=== PATIENT | female | born 1960 | race Caucasian/White ===

== ENCOUNTER 2021-05-08 15:11 | Emergency (ER) | payer MEDICARE, SELFPAY ==
[2021-05-08 15:17] VITALS: BP 110/70; PULSE 91; RESP 16; TEMP 36.8; O2SAT 95; BMI 35.4
--- NOTE | 2021-05-08 15:44 | CTR_ITS ---
PROCEDURE INFORMATION: Exam: CT Head Without Contrast Exam date and time: 05/08/2021 3:44 PM Age: 60 years old Clinical indication: Injury or trauma; Blunt trauma (contusions or hematomas); Consciousness not specified; Patient HX: ETOH involved fall TECHNIQUE: Imaging protocol: Computed tomography of the head without contrast. Radiation optimization: All CT scans at this facility use at least one of these dose optimization techniques: automated exposure control; mA and/or kV adjustment per patient size (includes targeted exams where dose is matched to clinical indication); or iterative reconstruction. COMPARISON: No relevant prior studies available. RADIATION DOSE METRICS: Total DLP (mGy-cm): 722.68 FINDINGS: Brain: Mild white matter chronic microvascular changes are noted. No hemorrhage or evidence of acute infarction is seen. Cerebral ventricles: No ventriculomegaly. Paranasal sinuses: Visualized sinuses are unremarkable. No fluid levels. Mastoid air cells: Visualized mastoid air cells are well aerated. Bones/joints: Unremarkable. No acute fracture. Soft tissues: Unremarkable. CT/CT head wo con* [id number] IMPRESSION: No acute intracranial abnormality. Radiation Dose CTDIVOL = (mGy): DLP = 722.68 (mGy-cm)
--- NOTE | 2021-05-08 15:44 | ECG_ITS ---
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 Measurements Intervals [place] Rate: 74 P: 63 ME: 154 QRS: 64 QRSD: 107 T: 65 QT: 390 QTc: 433 Interpretive Statements SINUS RHYTHM INCOMPLETE RIGHT BUNDLE BRANCH BLOCK [90+ ms QRS DURATION, TERMINAL R IN V1/V2, 40+ ms S IN I/aVL/V4/V5/V6] No previous ECG available for comparison Electronically Signed On 05-08-2021 21:54:28 [employer] by Zaire Malcolm M.D. [id number]
--- NOTE | 2021-05-08 16:15 | CTR_ITS ---
PROCEDURE INFORMATION: Exam: CT Lumbar Spine Without Contrast Exam date and time: 05/08/2021 4:15 PM Age: 60 years old Clinical indication: Injury or trauma; Blunt trauma (contusions or hematomas); Patient HX: ETOH involved fall; Additional info: Back pain TECHNIQUE: Imaging protocol: Computed tomography images of the lumbar spine without contrast. Sagittal, oblique axial, and coronal reformatted images were created and reviewed. Radiation optimization: All CT scans at this facility use at least one of these dose optimization techniques: automated exposure control; mA and/or kV adjustment per patient size (includes targeted exams where dose is matched to clinical indication); or iterative reconstruction. COMPARISON: No relevant prior studies available. RADIATION DOSE METRICS: Total DLP (mGy-cm): 1993.61 FINDINGS: Vertebrae: Vertebral body height is maintained. No subluxation. Normal bone mineralization. No acute fracture. Discs/Spinal canal/Neural foramina: Moderate loss of disc space height at T12-L1 and L5-S1. Calcification of the disc at L5-S1 and vacuum phenomenon at T12-L1 and L4-L5. Small broadbased posterior disc bulges at T12-L1 through L5-S1. Small marginal osteophytes at T12-L1 and L5-S1. Mild bilateral facet hypertrophy at L5-S1. Mild spinal canal stenosis at T12-L1 through L4-L5. Multilevel foraminal stenosis of varying severity in the visualized spine. Epidural space: No evidence for an epidural hematoma. Vasculature: Mild atherosclerotic changes in the visualized arteries. No evidence for aortic aneurysm. Soft tissues: No paravertebral soft tissue abnormality. Partially visualized low-density foci in the visualized left adrenal gland suggesting adrenal adenomas, the largest measures 1.1 x 1.7 cm (series 3, image 1). No radiopaque foreign body. CT/CT lumbar spine wo con* [id number] IMPRESSION: 1. No acute fracture of the lumbar spine. 2. Multilevel degenerative changes of varying severity in the visualized spine. 3. Mild spinal canal stenosis at T12-L1 through L4-L5. Multilevel foraminal stenosis of varying severity in the visualized spine. 4. Incidental/nonacute findings are listed in the report. COMMENTS: Consistent with the [employer]'s Incidental Findings Committee white paper (J Am Yon Radiol 2017): For any incidental adrenal lesion greater than 1 cm but less than 4 cm classified in this report as benign, likely benign, or containing fat (including classification as an adenoma or myelolipoma), no follow-up imaging is recommended per consensus recommendations based on imaging criteria. Further lab evaluation could be pursued if warranted based on clinical findings. Radiation Dose CTDIVOL = (mGy): DLP = 1994.61 (mGy-cm)
[2021-05-08 16:19] LABS: Basophils % 0.3 %; Eosinophils # 0.2 10^3/uL (0.0-0.8); Eosinophils % 1.4 %; Hematocrit 40.2 % (37.0-47.0); Hemoglobin 13.9 g/dL (11.5-15.3); Lymphocytes # 2.6 10^3/uL (0.8-4.8); Lymphocytes % 19.4 %; Mean Corpuscular HGB Conc 34.6 g/dL (30.0-36.0); Mean Corpuscular Hemoglobin 34.4 pg (28.0-34.0); Mean Corpuscular Volume 99.5 fl (81-99); Mean Platelet Volume 10.6 fL (7.4-10.4); Monocytes # 0.4 10^3/uL (0.2-0.9); Monocytes % 2.9 %; Neutrophils # 10.11 10^3/uL (1.8-7.7); Neutrophils % 75.7 %; Nucleated Red Blood Cells % 0 %; Platelet Count 239 10^3/cmm (130-400); Red Blood Count 4.04 10^6/uL (4.1-5.3); Red Cell Distribution Width 13.1 % (12.1-15.1); White Blood Count 13.4 10^3/uL (4.0-10.0)
--- NOTE | 2021-05-08 16:26 | W.ED.GENADLT ---
HPI - General Adult General: Chief complaint: Alcohol Stated complaint: ETOH INTOX Time Seen by Provider: 05/08/21 15:21 History of Present Illness: HPI narrative: Patient is a 60-year-old female with a history of alcohol dependence, recurrent falls who presents the emergency room for concerns of nausea vomiting, diarrhea lightheadedness and fall x1 day. Patient tells me that yesterday she went to a community center for dinner. While eating food, patient says that she felt like there were hives in my chest . Patient also reports chest pain followed by nausea vomiting. Patient says that she felt very lightheaded and had watery diarrhea 3 times. Patient says that she eventually passed out and was found on the ground. Patient complains of posterior headache and back pain after the fall. Patient this morning, patient says that she has had multiple drinks already. Denies any active chest pain or shortness of breath, reports decreased p.o., nausea and persistent diarrhea throughout the night. Patient denies any fever/chills, melena/hematochezia, complaints, or new vaginal discharge. Onset:1 day ago Duration:1 day Location:home Severity:moderate Review of Systems Narrative: Constitutional: No fever, no chills. HEENT: No vision changes CV: +chest pain x 1 episode yesterday, no palpitations PULM: no cough, +dyspnea x 1 episode yesterday GI: No abdominal pain, +N/+V/+D. : No dysuria MSKEL: No muscle pain SKIN: No new rashes, no lesions. NEURO: No headache, no focal weakness. HEME: No visible bruises PSYCH: Normal mood Physical Exam Narrative: EXAM NARRATIVE: Head: Atraumatic Eyes: PERRL, conjunctiva without injection ENT: Mucous membrane moist NECK: Supple, ROM intact LUNGS: LCTAB, no crackles/rhonchi CV: RRR ABDOMEN: Soft, no focal TTP. NO guarding rebound, guarding, rigidity. No CVA tenderness to percussion. Neg Martinez/Neg McBurney's point tenderness, no suprabupic tenderness to palpation. EXTREMITY: Normal ROM SKIN: No rash or erythema NEURO: Awake and alert, no focal motor deficits PSYCH: Normal mood and affect Course Vital Signs: Vital signs: Vital Signs Temperature 98.2 F 05/08/21 15:17 Pulse Rate 91 05/08/21 15:17 Respiratory Rate 16 05/08/21 15:17 Blood Pressure 110/70 05/08/21 15:17 Pulse Oximetry 95 05/08/21 15:17 MDM - General Adult MDM Narrative: Medical decision making narrative: 60-year-old female with history of alcohol dependence presents emergency room with nausea/vomiting, diarrhea, lightheadedness after eating [employer] food yesterday night. On exam, patient is hemodynamically stable, patient has no focal findings on exam. CBCV showed a white count of 13.4. Rest of vitals within normal limit. Creatinine within normal limit. Patient received 2 L of fluid GI cocktail with symptomatic improvement. Work-up today includes CT brain/CT lumbar spine for fall are negative for any acute fractures or brain bleed. Patient tolerated p.o. in the emergency room without any difficulty. At present time, I do not suspect that there is any acute emergent pathologies given his nausea and vomiting. K of 3.4, patient received 40meQ of potassium chloride tablet. Considered appendicitis however unlikely at this time given lack of signs and sx's to suggest appendicitis as etiology. Pt counseled that appendicitis may later develop and given appendicitis precautions and instructed to return if any development of RLQ tenderness, worsening or continued abdominal pain, or any fevers, chills, nausea, vomiting, or any other concerning signs or symptoms. Rx maalox and pepcid PRN dyspepsia and zofran PRN nausea/vomiting Disposition: Discharge. Patient counseled regarding diagnostic impression, treatment plan. Patient given ED strict return precautions to return for continuation, worsening, or development of new symptoms. Instructed to f/u w/ PCP regarding symptoms today. Patient verbalized understanding. Lab Data: Labs: Lab Results 05/08/21 05/08/21 05/08/21 16:13 16:13 16:13 WBC 13.4 10^3/uL H 10 ^3/uL (4.0-10.0) RBC 4.04 10^6/uL L 10 ^6/uL (4.1-5.3) Hgb 13.9 g/dL g/dL (11.5-15.3) Hct 40.2 % % (37.0-47.0) MCV 99.5 fl H fl (81-99) MCH 34.4 pg H pg (28.0-34.0) MCHC 34.6 g/dL g/dL (30.0-36.0) RDW 13.1 % % (12.1-15.1) Plt Count 239 10^3/cmm 10^3 /cmm (130-400) MPV 10.6 fL H fL (7.4-10.4) Neut % (Auto) 75.7 % % Lymph % (Auto) 19.4 % % [place] % (Auto) 2.9 % % Eos % (Auto) 1.4 % % Baso % (Auto) 0.3 % % Neut # (Auto) 10.11 10^3/uL H 1 0^3/uL (1.8-7.7) Lymph # (Auto) 2.6 10^3/uL 10^3/ uL (0.8-4.8) [place] # (Auto) 0.4 10^3/uL 10^3/ uL (0.2-0.9) Eos # (Auto) 0.2 10^3/uL 10^3/ uL (0.0-0.8) Baso # (Auto) 0.0 10^3/uL 10^3/ uL (0.0-0.1) Nucleated RBC % (a uto) 0 % % Nucleated RBCs # 0.0 /100WBC /100W BC Sodium 138 mmol/L mmol/L (136-145) Potassium 3.4 mmol/L L mmol /L (3.5-5.1) Chloride 99 mmol/L mmol/L (98-107) Carbon Dioxide 21 mmol/L L mmol/ L (22-29) Anion Gap 21.4 H (5-19) BUN 8 mg/dL mg/dL (8-23) Creatinine 0.6 mg/dL mg/dL (0.5-0.9) GFR Calculation 101.6 mL/min mL/m in (90-130) Glucose 86 mg/dL mg/dL (65-115) Calculated Osmolal ity 284 mOsm/kg L mOs m/kg (285-295) Calcium 8.9 mg/dL mg/dL (8.5-10.5) Magnesium 1.9 mg/dL mg/dL (1.7-2.3) Total Bilirubin 0.4 mg/dL mg/dL (0.15-1.2) AST 12 U/L U/L (0-32) ALT 6 U/L U/L (0-33) Alkaline Phosphata se 76 IU/L IU/L (35-105) Troponin T Baselin e 8 ng/L ng/L (0-10) Total Protein 5.7 g/dL L g/dL (6.6-8.7) Albumin 3.6 g/dL g/dL (3.5-5.2) Globulin 2.1 g/dL g/dL (1.3-4.6) Lipase 11 U/L L U/L (13-60) Imaging Data^: Other Imaging: Radiologist's impression: [employer] [place] [id number] Scan ReportSigned Patient: Rosangela Meyer #: [id number]: 1960Acct#:[id number]/Sex: 60 / FADM Date: 05/08/21Loc: ERRoom/Bed:Attending Dr: Ordering Provider/Ordering MD: Radha Marino MD Date of Service: 05/08/21 Procedure(s): CT lumbar spine wo con* [id number] Accession Number(s): [id number] Report Number: [id number] PROCEDURE INFORMATION: Exam: CT Lumbar Spine Without Contrast Exam date and time: 05/08/2021 4:15 PM Age: 60 years old Clinical indication: Injury or trauma; Blunt trauma (contusions or hematomas); Patient HX: ETOH involved fall; Additional info: Back pain TECHNIQUE: Imaging protocol: Computed tomography images of the lumbar spine without contrast. Sagittal, oblique axial, and coronal reformatted images were created and reviewed. Radiation optimization: All CT scans at this facility use at least one of these dose optimization techniques: automated exposure control; mA and/or kV adjustment per patient size (includes targeted exams where dose is matched to clinical indication); or iterative reconstruction. COMPARISON: No relevant prior studies available. RADIATION DOSE METRICS: Total DLP (mGy-cm): 1993.61 FINDINGS: Vertebrae: Vertebral body height is maintained. No subluxation. Normal bone mineralization. No acute fracture. Discs/Spinal canal/Neural foramina: Moderate loss of disc space height at T12-L1 and L5-S1. Calcification of the disc at L5-S1 and vacuum phenomenon at T12-L1 and L4-L5. Small broadbased posterior disc bulges at T12-L1 through L5-S1. Small marginal osteophytes at T12-L1 and L5-S1. Mild bilateral facet hypertrophy at L5-S1. Mild spinal canal stenosis at T12-L1 through L4-L5. Multilevel foraminal stenosis of varying severity in the visualized spine. Epidural space: No evidence for an epidural hematoma. Vasculature: Mild atherosclerotic changes in the visualized arteries. No evidence for aortic aneurysm. Soft tissues: No paravertebral soft tissue abnormality. Partially visualized low-density foci in the visualized left adrenal gland suggesting adrenal adenomas, the largest measures 1.1 x 1.7 cm (series 3, image 1). No radiopaque foreign body. CT/CT lumbar spine wo con* [id number] IMPRESSION: 1. No acute fracture of the lumbar spine. 2. Multilevel degenerative changes of varying severity in the visualized spine. 3. Mild spinal canal stenosis at T12-L1 through L4-L5. Multilevel foraminal stenosis of varying severity in the visualized spine. 4. Incidental/nonacute findings are listed in the report. COMMENTS: Consistent with the [employer]'s Incidental Findings Committee white paper (J Am Yon Radiol 2017): For any incidental adrenal lesion greater than 1 cm but less than 4 cm classified in this report as benign, likely benign, or containing fat (including classification as an adenoma or myelolipoma), no follow-up imaging is recommended per consensus recommendations based on imaging criteria. Further lab evaluation could be pursued if warranted based on clinical findings. Radiation Dose CTDIVOL = (mGy): DLP = 1994.61 (mGy-cm) Dictated By:Madison Fuchs MDSigned By:Madison Fuchs MDSigned Date/Time:05/08/21 1722DD/ 1615 [facility] [place] [id number] Scan ReportSigned Patient: Rosangela Meyer #: [id number]: 1960Acct#:[id number]/Sex: 60 / FADM Date: 05/08/21Loc: ERRoom/Bed:Attending Dr: Ordering Provider/Ordering MD: Radha Marino MD Date of Service: 05/08/21 Procedure(s): CT head wo con* [id number] Accession Number(s): [id number] Report Number: [id number] PROCEDURE INFORMATION: Exam: CT Head Without Contrast Exam date and time: 05/08/2021 3:44 PM Age: 60 years old Clinical indication: Injury or trauma; Blunt trauma (contusions or hematomas); Consciousness not specified; Patient HX: ETOH involved fall TECHNIQUE: Imaging protocol: Computed tomography of the head without contrast. Radiation optimization: All CT scans at this facility use at least one of these dose optimization techniques: automated exposure control; mA and/or kV adjustment per patient size (includes targeted exams where dose is matched to clinical indication); or iterative reconstruction. COMPARISON: No relevant prior studies available. RADIATION DOSE METRICS: Total DLP (mGy-cm): 722.68 FINDINGS: Brain: Mild white matter chronic microvascular changes are noted. No hemorrhage or evidence of acute infarction is seen. Cerebral ventricles: No ventriculomegaly. Paranasal sinuses: Visualized sinuses are unremarkable. No fluid levels. Mastoid air cells: Visualized mastoid air cells are well aerated. Bones/joints: Unremarkable. No acute fracture. Soft tissues: Unremarkable. CT/CT head wo con* [id number] IMPRESSION: No acute intracranial abnormality. Radiation Dose CTDIVOL = (mGy): DLP = 722.68 (mGy-cm) Dictated By:Carlos Mcgowan MDSigned By:Carlos Mcgowan MDSigned Date/Time:05/08/21 1714DD/ 1544 Discharge Plan Discharge Patient Disposition: Home Clinical Impression: Nausea & vomiting, Diarrhea, Light headedness, Alcohol dependence Condition: Stable Prescriptions: New Zofran 4 mg tablet 4 mg PO DAILY PRN (Reason: nausea and vomiting) 4 Days RF: 0 Pepcid 20 mg tablet 20 mg PO BID PRN (Reason: abdominal pain) 10 Days Qty: 20 RF: 0 Maalox Advanced 1,000-60 mg tablet,chewable 1 tab PO TID PRN (Reason: abdominal pain) 7 Days Qty: 21 RF: 0 Discharge Orders: Discharge ED (Routine); Ordered 05/08/21 Ordered By: Radha Marino Discharge Diet: Advance as tolerated Discharge Activity: Resume usual activity Patient Instructions: Acute Nausea and Vomiting (ED) Activity Restrictions/Additional Instructions: Come back to the emergency room if your symptoms worsen, have any shortness of breath, fever/chills, dehydration, inability tolerate p.o., any difficulty breathing, or any new or concerning complaints. Coding Level of Care Code ED [facility]
[2021-05-08 16:47] LABS: Alanine Aminotransferase 6 U/L (0-33); Albumin Level 3.6 g/dL (3.5-5.2); Alkaline Phosphatase 76 IU/L (35-105); Anion Gap 21.4 (5-19); Aspartate Amino Transferase 12 U/L (0-32); Blood Urea Nitrogen 8 mg/dL (8-23); Calcium 8.9 mg/dL (8.5-10.5); Carbon Dioxide 21 mmol/L (22-29); Chloride 99 mmol/L (98-107); Globulin 2.1 g/dL (1.3-4.6); Glomerular Filtration Rate 101.6 mL/min (90-130); Glucose 86 mg/dL (65-115); Lipase 11 U/L (13-60); Magnesium 1.9 mg/dL (1.7-2.3); Osmolality Calculated 284 mOsm/kg (285-295); Potassium 3.4 mmol/L (3.5-5.1); Sodium 138 mmol/L (136-145); Total Bilirubin 0.4 mg/dL (0.15-1.2); Total Protein 5.7 g/dL (6.6-8.7)
[2021-05-08 16:48] LABS: Troponin(5th) Baseline 8 ng/L (0-10)
[2021-05-08] MEDS: sodium chloride 0.9% 1,000 ML 999 ML IV (17:17)
[2021-05-08] MEDS: lidocaine 2% viscous 15 ML, aluminum-mag hydrox-simethicon 30 ML, sucralfate oral liq 1 GM PO (17:18)
[2021-05-08] MEDS: potassium chloride ER 20 mEq Tablet 40 MEQ PO (18:00)
== END 2021-05-08 18:01 | disposition home or self-care (01) ==
PROVIDERS: Emergency Provider Emergency Medicine
DX: F10.20 Alcohol dependence, uncomplicated (principal); R11.2 Nausea with vomiting, unspecified; R19.7 Diarrhea, unspecified; R42 Dizziness and giddiness
CPT/HCPCS: 70450; 72131; 80053; 83690; 83735; 84484; 85025; 93005; 96360; 99283; J7030

== ENCOUNTER 2021-07-10 17:31 | Emergency (ER) | payer MEDICARE, SELFPAY ==
--- NOTE | 2021-07-10 17:42 | XRR_ITS ---
PROCEDURE INFORMATION: Exam: XR Right Knee Exam date and time: 07/10/2021 5:42 PM Age: 60 years old Clinical indication: Pain; Knee; Right; Additional info: Fall, pain TECHNIQUE: Imaging protocol: XR Right knee. Views: 3 views. COMPARISON: No relevant prior studies available. FINDINGS: Bones/joints: Normal. Soft tissues: Normal. No effusion XR/XR knee RT 3V* [id number] IMPRESSION: No significant findings
--- NOTE | 2021-07-10 17:42 | CTR_ITS ---
PROCEDURE INFORMATION: Exam: CT Cervical Spine Without Contrast Exam date and time: 07/10/2021 5:42 PM Age: 60 years old Clinical indication: Injury or trauma; Blunt trauma; Patient HX: Unwitnessed fall TECHNIQUE: Imaging protocol: Computed tomography images of the cervical spine without contrast. Radiation optimization: All CT scans at this facility use at least one of these dose optimization techniques: automated exposure control; mA and/or kV adjustment per patient size (includes targeted exams where dose is matched to clinical indication); or iterative reconstruction. COMPARISON: CT head wo con* [id number] 05/08/2021 4:27 PM RADIATION DOSE METRICS: Total DLP (mGy-cm): 624.21 FINDINGS: Bones/joints: No cervical fracture or subluxation. Discs/Spinal canal/Neural foramina: Chronic disc spur complex at C5-C6 producing mild central stenosis with minimum midline AP canal diameter of 9 mm. Both neural foramina are narrowed due to spurs. Prevertebral Space: No prevertebral swelling. Thyroid: 1.3 cm solid left thyroid nodule. Lungs: Paraseptal emphysema in the lung apices. Vasculature: Scattered calcified plaques in both carotid bifurcations. Soft tissues: Unremarkable. CT/CT cervical spin wo con* [id number] IMPRESSION: 1. No acute cervical spine findings. 2. 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 3. Small solid left thyroid nodule. COMMENTS: Consistent with the [employer]'s Incidental Findings Committee white paper (J Am Yon Radiol 2015): In patients aged 35 years and older with an incidental thyroid nodule equal to or greater than 1.[address], MRI or extrathyroidal US, further evaluation with dedicated thyroid US is recommended for patients with normal life expectancy and without comorbidities. For smaller nodules without suspicious features, no further evaluation or follow up is recommended.
--- NOTE | 2021-07-10 17:42 | CTR_ITS ---
PROCEDURE INFORMATION: Exam: CT Head Without Contrast Exam date and time: 07/10/2021 5:42 PM Age: 60 years old Clinical indication: Injury or trauma; Fall; Blunt trauma (contusions or hematomas); Additional info: Fall, MEJÍA; ETOH TECHNIQUE: Imaging protocol: Computed tomography of the head without contrast. Radiation optimization: All CT scans at this facility use at least one of these dose optimization techniques: automated exposure control; mA and/or kV adjustment per patient size (includes targeted exams where dose is matched to clinical indication); or iterative reconstruction. COMPARISON: CT head wo con* [id number] 05/08/2021 4:27 PM RADIATION DOSE METRICS: Total DLP (mGy-cm): 785.71 FINDINGS: Brain: No CT evidence for acute ischemia, mass or hemorrhage. No extra-axial fluid collection, midline shift or hydrocephalus. Mild sulcal widening is a chronic age related change. Cerebral ventricles: Mild age related enlargement. Paranasal sinuses: Visualized sinuses are unremarkable. No fluid levels. Mastoid air cells: Visualized mastoid air cells are well aerated. Bones/joints: Unremarkable. No acute fracture. Soft tissues: Unremarkable. CT/CT head wo con* [id number] IMPRESSION: No acute findings.
--- NOTE | 2021-07-10 17:44 | W.ED.FALL ---
HPI - Fall General: Chief Complaint: Alcohol Stated Complaint: HEAD PAIN S/P FALL; ETOH Time Seen by Provider: 07/10/21 17:33 Source: patient and EMS Mode of arrival: EMS Limitations: no limitations History of Present Illness: HPI Narrative: Patient is a 60-year-old female presents to ED today via EMS for evaluation following a fall 2 days ago. Patient tells me she was carrying wood down to her house when she accidentally slipped and fell secondary to ice. She states she struck the back of her head and landed on her right knee. Patient arrives acutely intoxicated. She does have a longstanding history of chronic alcohol use. Patient states she knows her right knee is broke (as she moves it all around on the table). Denies LOC during the fall. She does not complain of neck or back pain. States she struck her face but is not having pain here. Patient states two male individuals cut wood for her and apparently today came and checked on her and found her acutely intoxicated so they called an ambulance. Patient upon arrival clearly has been drinking. She is cooperative at times. Other times she is cantankerous and slightly belligerent. complaint: fall Onset (ago): day(s) Fall from: standing Fall witnessed: no Place fall occurred: home Loss of consciousness: None Prolonged down time: no Symptoms prior to fall: none Context: tripped/slipped (ice) Associated symptoms-after fall: Reports headache(s); Denies abdominal pain, chest pain, hematuria, lightheadedness or neck pain Review of Systems Const: Denies: fever(s), chills, body aches, fatigue or malaise Eyes: Denies: change in vision or blurry vision ENMT: Denies: throat pain, odynophagia, nasal discharge or nasal congestion Card: Denies: chest pain, palpitations, irregular heart rhythm, edema, lightheadedness, syncope, pre-syncope or dyspnea on exertion Resp: Denies: dyspnea, productive cough, non-productive cough, wheezing, hemoptysis or chest congestion GI: Denies: abdominal pain, nausea, vomiting or diarrhea : Denies: flank pain, dysuria or hematuria Musc: Reports: joint pain (R knee); Denies: neck pain, back pain, extremity pain, extremity swelling, joint swelling, joint redness or joint warmth Neuro: Reports: headache(s); Denies: numbness in extremities, weakness in extremities, sensory changes or dizziness Physical Exam Const: COMMON NORMALS: patient oriented x3, no limitations and alert GENERAL APPEARANCE: disheveled and odor of alcohol detected ORIENTATION/CONSCIOUSNESS: Yes awake, Yes oriented to person, Yes oriented to place and Yes oriented to time HENMT: COMMON NORMALS: normocephalic, atraumatic and Normal external nose present HEAD & SCALP: normal to inspection, normocephalic and atraumatic FACE & SINUS: normal facial exam NOSE: Normal external nose present TEETH & GINGIVA: Yes other (extremely poor dentition) Neck/C-Spine: COMMON NORMALS: full ROM GENERAL: Yes normal visual inspection CERVICAL SPINE: No pain with cervical ROM and No Cervical spine tenderness Resp: COMMON NORMALS: normal respiratory effort and clear to auscultation bilaterally AUSCULTATION: clear to auscultation bilaterally Cardio: COMMON NORMALS: regular rate and regular rhythm RATE: regular rate RHYTHM: regular rhythm GI: COMMON NORMALS: Normal to inspection, nondistended, normoactive bowel sounds present, Soft to palpation, non-tender, No hepatosplenomegaly present and no masses PALPATION: Yes Soft to palpation and Yes No hepatosplenomegaly present Back/Pelvis: COMMON NORMALS: thoracic and lumbar spine normal to inspection, no thoracic nor lumbar tenderness and thoraco-lumbar ROM normal Extremity: COMMON NORMALS: full ROM GENERAL: Yes normal exam except as noted RIGHT LOWER EXTREMITY: Yes knee joint (ecchymosis w/o swelling R anterior knee; full ROM) Right knee: Yes palpation (TTP anterior knee), Yes ROM (normal) and Yes neurovascular exam (normal) Neuro: TONY COMA SCALE: document GCS findings Mccune coma scale eye opening: Spontaneous Tony coma scale verbal response: Orientated Tony coma scale motor response: Obey commands Tony coma scale total score: 15 COMMON NORMALS: patient oriented x3, CN's II-XII intact bilaterally, moves all extremities, no focal motor deficits and no sensory deficits noted SENSORIUM/ORIENTATION: Yes alert, Yes oriented to person, Yes oriented to place and Yes oriented to time Skin: TRAUMA: no lacerations OTHER: mild abrasions to R hand, R anterior knee Course Vital Signs: Vital signs: Vital Signs Temperature 97.8 F 07/10/21 18:30 Pulse Rate 71 07/10/21 18:30 Respiratory Rate 14 07/10/21 18:30 Blood Pressure 146/93 07/10/21 18:30 Pulse Oximetry 97 07/10/21 18:30 MDM - Fall MDM Narrative: Medical decision making narrative: Patient CT head/cervical spine negative. XR right knee negative. Lab work ordered however patient is refusing this. Upon re-examination patient is cooperative. She is alert and oriented and answering all questions appropriately. Vital signs are stable. Patient states she wants to go home. Patient will be discharged when she finds a safe ride home. Imaging Data^: XR R knee: Radiologist's impression: [employer] [facility].[place], [place] [address]ZUuy ReportSigned Patient: Efrain Meyert #: [id number]: [id number]#:[id number]/Sex: 60 / FADM Date: 07/10/21Loc: ERRoom/Bed:Attending Dr: Ordering Provider/Ordering MD: Raysa Mtz Date of Service: 07/10/21 Procedure(s): XR knee RT 3V* [id number] Accession Number(s): [id number] Report Number: [id number] PROCEDURE INFORMATION: Exam: XR Right Knee Exam date and time: 07/10/2021 5:42 PM Age: 60 years old Clinical indication: Pain; Knee; Right; Additional info: Fall, pain TECHNIQUE: Imaging protocol: XR Right knee. Views: 3 views. COMPARISON: No relevant prior studies available. FINDINGS: Bones/joints: Normal. Soft tissues: Normal. No effusion XR/XR knee RT 3V* [id number] IMPRESSION: No significant findings Dictated By:Otto Ovalleigned By:Otto Ovalleigned Date/Time:07/10/21 1822DD/ 1742 CT cervical: Radiologist's impression: [employer] [address] [facility] [place] [address] CT Scan Report Signed Patient: Vero Meyer Unit #: [id number] : 1960 Age/Sex: 60 / F ADM Date: 07/10/21 Loc: ER Room/Bed: Attending Dr: Ordering Provider/Ordering MD: Raysa Mtz Date of Service: 07/10/21 Procedure(s): CT cervical spin wo con* [id number] Accession Number(s): [id number] Report Number: [id number] PROCEDURE INFORMATION: Exam: CT Cervical Spine Without Contrast Exam date and time: 07/10/2021 5:42 PM Age: 60 years old Clinical indication: Injury or trauma; Blunt trauma; Patient HX: Unwitnessed fall TECHNIQUE: Imaging protocol: Computed tomography images of the cervical spine without contrast. Radiation optimization: All CT scans at this facility use at least one of these dose optimization techniques: automated exposure control; mA and/or kV adjustment per patient size (includes targeted exams where dose is matched to clinical indication); or iterative reconstruction. COMPARISON: CT head wo con* [id number] 05/08/2021 4:27 PM RADIATION DOSE METRICS: Total DLP (mGy-cm): 624.21 FINDINGS: Bones/joints: No cervical fracture or subluxation. Discs/Spinal canal/Neural foramina: Chronic disc spur complex at C5-C6 producing mild central stenosis with minimum midline AP canal diameter of 9 mm. Both neural foramina are narrowed due to spurs. Prevertebral Space: No prevertebral swelling. Thyroid: 1.3 cm solid left thyroid nodule. Lungs: Paraseptal emphysema in the lung apices. Vasculature: Scattered calcified plaques in both carotid bifurcations. Soft tissues: Unremarkable. CT/CT cervical spin wo con* [id number] IMPRESSION: 1. No acute cervical spine findings. 2. 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 3. Small solid left thyroid nodule. COMMENTS: Consistent with the [employer]'s Incidental Findings Committee white paper (J Am Yon Radiol 2015): In patients aged 35 years and older with an incidental thyroid nodule equal to or greater than 1.[address], MRI or extrathyroidal US, further evaluation with dedicated thyroid US is recommended for patients with normal life expectancy and without comorbidities. For smaller nodules without suspicious features, no further evaluation or follow up is recommended. Dictated By: Otto Ovalle MD Signed By: Otto Ovalle MD Signed Date/Time: 07/10/211824 DD/ 41 CT Head: Radiologist's impression: [facility].[place], [place] [address]BX Scan ReportSigned Patient: Rosangela Meyer #: [id number]: 1960Acct#:[id number]/Sex: 60 / FADM Date: 07/10/21Loc: ERRoom/Bed:Attending Dr: Ordering Provider/Ordering MD: Raysa Mtz Date of Service: 07/10/21 Procedure(s): CT head wo con* [id number] Accession Number(s): [id number] Report Number: [id number] PROCEDURE INFORMATION: Exam: CT Head Without Contrast Exam date and time: 07/10/2021 5:42 PM Age: 60 years old Clinical indication: Injury or trauma; Fall; Blunt trauma (contusions or hematomas); Additional info: Fall, MEJÍA; ETOH TECHNIQUE: Imaging protocol: Computed tomography of the head without contrast. Radiation optimization: All CT scans at this facility use at least one of these dose optimization techniques: automated exposure control; mA and/or kV adjustment per patient size (includes targeted exams where dose is matched to clinical indication); or iterative reconstruction. COMPARISON: CT head wo con* [id number] 05/08/2021 4:27 PM RADIATION DOSE METRICS: Total DLP (mGy-cm): 785.71 FINDINGS: Brain: No CT evidence for acute ischemia, mass or hemorrhage. No extra-axial fluid collection, midline shift or hydrocephalus. Mild sulcal widening is a chronic age related change. Cerebral ventricles: Mild age related enlargement. Paranasal sinuses: Visualized sinuses are unremarkable. No fluid levels. Mastoid air cells: Visualized mastoid air cells are well aerated. Bones/joints: Unremarkable. No acute fracture. Soft tissues: Unremarkable. CT/CT head wo con* [id number] IMPRESSION: No acute findings. Dictated By:Otto Ovalleigned By:Otto Ovalle Date/Time:07/10/211836DD/ 41 Discharge Plan Discharge Patient Disposition: Home Clinical Impression: Alcoholic intoxication Qualifiers: Complication of substance-induced condition: uncomplicated Qualified Code(s): F10.920 - Alcohol use, unspecified with intoxication, uncomplicated Fall from slipping Qualifiers: Encounter type: initial encounter Qualified Code(s): W01.0XXA - Fall on same level from slipping, tripping and stumbling without subsequent striking against object, initial encounter Contusion of knee, right Qualifiers: Encounter type: initial encounter Qualified Code(s): S80.01XA - Contusion of right knee, initial encounter Condition: Stable Discharge Orders: Discharge ED (Routine); Ordered 07/10/21 Ordered By: Raysa Mtz Activity Restrictions/Additional Instructions: Your CT scan found an incidental finding of a small solid left thyroid nodule. Please follow-up with your primary care provider in the next few weeks for further evaluation of this. Coding Level of Care Code ED [facility] for Maged Gallegos Exam Comprehensive
[2021-07-10 18:30] VITALS: BP 146/93; PULSE 71; RESP 14; TEMP 36.6; O2SAT 97; BMI 30.9
== END 2021-07-10 19:53 | disposition home or self-care (01) ==
PROVIDERS: Emergency Provider Physician Assistant
DX: F10.920 Alcohol use, unspecified with intoxication, uncomplicated (principal); S80.01XA Contusion of right knee, initial encounter; W01.0XXA Fall on same level from slipping, tripping and stumbling without subsequent striking against object, initial encounter; E04.1 Nontoxic single thyroid nodule
CPT/HCPCS: 70450; 72125; 73562; 99282

== ENCOUNTER 2021-08-23 16:32 | Inpatient (IN) | payer MEDICARE, SELFPAY ==
--- NOTE | 2021-08-23 16:35 | CTR_ITS ---
PROCEDURE INFORMATION: Exam: CT Abdomen And Pelvis With Contrast Exam date and time: 08/23/2021 4:35 PM Age: 61 years old Clinical indication: Patient HX: Abdominal pain with mass; Additional info: Abd pain TECHNIQUE: Imaging protocol: Computed tomography of the abdomen and pelvis with contrast. Radiation optimization: All CT scans at this facility use at least one of these dose optimization techniques: automated exposure control; mA and/or kV adjustment per patient size (includes targeted exams where dose is matched to clinical indication); or iterative reconstruction. Contrast material: OMNI 300; Contrast volume: 95 ml; Contrast route: INTRAVENOUS (IV); COMPARISON: CT lumbar spine wo con* [id number] 05/08/2021 4:30 PM RADIATION DOSE METRICS: Total DLP (mGy-cm): 1360.13 FINDINGS: Liver: Normal. No mass. Gallbladder and bile ducts: Normal. No calcified stones. No ductal dilation. Pancreas: Normal. No ductal dilation. Spleen: Normal. No splenomegaly. Adrenal glands: Bilateral adrenal hypertrophy suspected. Kidneys and ureters: Normal. No hydronephrosis. Stomach and bowel: Diverticulosis with some mid sigmoid colon wall thickening in the area of several diverticuli perhaps reflecting associated diverticulitis or short segment colitis in the appropriate clinical setting. Appendix: No evidence of appendicitis. Intraperitoneal space: Unremarkable. No free air. No significant fluid collection. Vasculature: Unremarkable. No abdominal aortic aneurysm. Lymph nodes: Unremarkable. No enlarged lymph nodes. Urinary bladder: Unremarkable as visualized. Reproductive: Unremarkable as visualized. Bones/joints: Unremarkable. No acute fracture. Soft tissues: Lower abdominal wall somewhat multiloculated cystic mass measuring 15 cm craniocaudal by 11 cm AP by 16 cm transverse confined to the subcutaneous fat without intra-abdominal extension along with a small amount of internal air, concerning for an infectious process. CT/CT abdomen pelvis w con* [id number] IMPRESSION: 1. Lower abdominal wall somewhat multiloculated cystic mass measuring 15 cm craniocaudal by 11 cm AP by 16 cm transverse confined to the subcutaneous fat without intra-abdominal extension along with a small amount of internal air, concerning for an infectious process. 2. Bilateral adrenal hypertrophy suspected. 3. Diverticulosis with some mid sigmoid colon wall thickening in the area of several diverticuli perhaps reflecting associated diverticulitis or short segment colitis in the appropriate clinical setting.
--- NOTE | 2021-08-23 16:35 | W.ED.ABDPA2 ---
Documented by User: Ari Gonzalez DO 08/24/21 05:06 HPI - Abdominal Pain General: Chief Complaint: Abdominal Pain Stated Complaint: ABD PAIN X 1 MONTH Time Seen by Provider: 08/23/21 16:35 Source: patient Mode of arrival: ambulatory History of Present Illness: 61-year-old female presents emergency room with complaints of abdominal pain and swelling. Show a large soft tissue swelling area in the left lower quadrant. Patient relates that she thinks she has episode of diverticulitis she has had in the past. She denies any fever sweats chills denies any diarrhea. She is not had any nausea or vomiting. No dysuria urgency or frequency. She has some mild redness of the skin overlying the area has not had any active drainage from the skin. MD elicited complaint: abdominal pain Pertinent past history: diverticulitis Onset (ago): week(s) Pain Consistency: constant Location: LLQ Severity: moderate Quality: aching Radiation: none Migration to: no migration Exacerbating factors: movement Relieving factors: rest Associated Symptoms: Reports bloating; Denies anorexia, belching, change in bowel habits, change in stool character, chills, coffee ground emesis, constipation, GI cramping, diarrhea, dyspepsia, dysuria, excessive flatus, fever(s), heartburn, hematochezia, hematuria, hematemesis, fecal incontinence, loose stools, melena, nausea, poor appetite, syncope and vomiting Review of Systems Const: Denies: fever(s) or chills ENMT: Denies: throat pain, ear or mastoid pain, nasal discharge or nasal congestion Card: Denies: syncope Resp: Denies: dyspnea, productive cough or non-productive cough GI: Reports: bloating; Denies: nausea, vomiting, hematemesis, coffee ground emesis, heartburn, diarrhea, constipation, GI cramping, belching, excessive flatus, fecal incontinence, change in bowel habits, change in stool character, hematochezia or melena : Denies: dysuria or hematuria Skin/Breast: Denies: rash or pruritus PFS ED PFSH: Medical History Alcohol dependence Colitis Diverticular disease of intestine with perforation and abscess Recurrent falls Physical Exam Const: COMMON NORMALS: no acute distress GENERAL APPEARANCE: cooperative and comfortable ORIENTATION/CONSCIOUSNESS: Yes awake, Yes oriented to person, Yes oriented to place and Yes oriented to time HENMT: COMMON NORMALS: normocephalic, atraumatic and hearing grossly normal bilaterally HEAD & SCALP: normocephalic and atraumatic Neck/C-Spine: COMMON NORMALS: no JVD Resp: COMMON NORMALS: normal respiratory effort, No retractions, No use of accessory muscles and clear to auscultation bilaterally AUSCULTATION: clear to auscultation bilaterally Cardio: COMMON NORMALS: no JVD, regular rate, regular rhythm and No murmurs present (Cardio) RATE: regular rate RHYTHM: regular rhythm GI: COMMON NORMALS: No hepatosplenomegaly present AUSCULTATION: Yes normoactive bowel sounds PALPATION: Yes Tenderness to palpation present (GI), No Guarding due to palpation present (GI) and Yes No hepatosplenomegaly present OTHER: Large tender soft tissue mass in the left lower quadrant is firm to palpation tender there is some mild erythema on the inferior aspect. There is no drainage no pointing. On palpation it feels like an abdominal wall defect with abdominal contents filling the defect. Extremity: COMMON NORMALS: normal to inspection, capillary refill normal, no clubbing, cyanosis or edema, no calf tenderness and no pedal edema Neuro: SENSORIUM/ORIENTATION: Yes oriented to person, Yes oriented to place and Yes oriented to time Skin: COMMON NORMALS: no rashes or lesions noted GENERAL SKIN EXAM: no rashes or lesions noted Course Vital Signs: Vital signs: Vital Signs Temperature 97.9 F 08/23/21 22:08 Pulse Rate 82 08/23/21 23:30 Respiratory Rate 17 08/23/21 23:30 Blood Pressure 98/58 08/23/21 23:30 Pulse Oximetry 92 08/23/21 23:30 MDM - Abdominal Pain Medical Decision Making Care signed out to Dr. Corona at change of shift. See final notes for diagnosis and disposition. Patient presents here with pain in her left lower quadrant CT does show a abdominal wall mass in the subcu with some signs of infection along with erythema over the mass as well as cellulitis. I did spoke to surgery Dr. Prescott once patient admitted on IV antibiotics to speak to hospitalist who is admitting Dr. Quevedo is consulted. Lab Data : 08/23/21 16:48 08/23/21 16:48 Labs/Radiology: Radiology Impressions Abdomen/Pelvis CT 08/23/21 16:35 IMPRESSION: 1. Lower abdominal wall somewhat multiloculated cystic mass measuring 15 cm craniocaudal by 11 cm AP by 16 cm transverse confined to the subcutaneous fat without intra-abdominal extension along with a small amount of internal air, concerning for an infectious process. 2. Bilateral adrenal hypertrophy suspected. 3. Diverticulosis with some mid sigmoid colon wall thickening in the area of several diverticuli perhaps reflecting associated diverticulitis or short segment colitis in the appropriate clinical setting. Laboratory Results WBC 18.7 10^3/uL (4.0-10.0) H 08/23/21 16:48 RBC 3.53 10^6/uL (4.1-5.3) L 08/23/21 16:48 Hgb 11.7 g/dL (11.5-15.3) 08/23/21 16:48 Hct 33.4 % (37.0-47.0) L 08/23/21 16:48 MCV 94.6 fl (81-99) 08/23/21 16:48 MCH 33.1 pg (28.0-34.0) 08/23/21 16:48 MCHC 35.0 g/dL (30.0-36.0) 08/23/21 16:48 RDW 12.9 % (12.1-15.1) 08/23/21 16:48 Plt Count 443 10^3/cmm (130-400) H 08/23/21 16:48 MPV 9.2 fL (7.4-10.4) 08/23/21 16:48 Neut % (Auto) 85.0 % 08/23/21 16:48 Lymph % (Auto) 7.5 % 08/23/21 16:48 Lewis % (Auto) 6.3 % 08/23/21 16:48 Eos % (Auto) 0.1 % 08/23/21 16:48 Baso % (Auto) 0.4 % 08/23/21 16:48 Neut # (Auto) 15.91 10^3/uL (1.8-7.7) H 08/23/21 16:48 Lymph # (Auto) 1.4 10^3/uL (0.8-4.8) 08/23/21 16:48 [place] # (Auto) 1.2 10^3/uL (0.2-0.9) H 08/23/21 16:48 Eos # (Auto) 0.0 10^3/uL (0.0-0.8) 08/23/21 16:48 Baso # (Auto) 0.1 10^3/uL (0.0-0.1) 08/23/21 16:48 Nucleated RBC % (auto) 0 % 08/23/21 16:48 Nucleated RBCs # 0.0 /100WBC 08/23/21 16:48 Sodium 128 mmol/L (136-145) L 08/23/21 16:48 Potassium 4.3 mmol/L (3.5-5.1) 08/23/21 16:48 Chloride 92 mmol/L (98-107) L 08/23/21 16:48 Carbon Dioxide 25 mmol/L (22-29) 08/23/21 16:48 Anion Gap 15.3 (5-19) 08/23/21 16:48 BUN 12 mg/dL (8-23) 08/23/21 16:48 Creatinine 0.6 mg/dL (0.5-0.9) 08/23/21 16:48 GFR Calculation 101.3 mL/min (90-130) 08/23/21 16:48 Glucose 128 mg/dL (65-115) H 08/23/21 16:48 Calculated Osmolality 267 mOsm/kg (285-295) L 08/23/21 16:48 Lactic Acid 3.1 mmol/L (0.5-2.2) H 08/23/21 18:19 Calcium 9.7 mg/dL (8.5-10.5) 08/23/21 16:48 Total Bilirubin 0.5 mg/dL (0.15-1.2) 08/23/21 16:48 AST 17 U/L (0-32) 08/23/21 16:48 ALT 16 U/L (0-33) 08/23/21 16:48 Alkaline Phosphatase 130 IU/L (35-105) H 08/23/21 16:48 Total Protein 6.9 g/dL (6.6-8.7) 08/23/21 16:48 Albumin 3.1 g/dL (3.5-5.2) L 08/23/21 16:48 Globulin 3.8 g/dL (1.3-4.6) 08/23/21 16:48 Urine Color Yellow (Yellow) 08/23/21 17:27 Urine Appearance Clear (CLEAR) 08/23/21 17:27 Urine pH 7 (5-7) 08/23/21 17:27 Ur Specific [place] 1.005 (1.005-1.030) 08/23/21 17:27 Urine Protein Neg (Negative) 08/23/21 17:27 Urine Glucose (UA) Norm (Normal) 08/23/21 17:27 Urine Ketones Negative (Negative) 08/23/21 17: Urine Blood Neg (Negative) 08/23/21 17:27 Urine Nitrate Negative (Negative) 08/23/21 17:27 Urine Bilirubin Neg (Negative) 08/23/21 17:27 Urine Urobilinogen Norm mg/dL (Negative) 08/23/21 17:27 Ur Leukocyte Esterase Negative (Negative) 08/23/21 17:27 Urine Opiates Screen Negative ng/mL (Negative) 08/23/21 17:27 Ur Barbiturates Screen Negative ng/mL (Negative) 08/23/21 17:27 Ur Phencyclidine Scrn Negative ng/mL (Negative) 08/23/21 17:27 Ur Amphetamines Screen Negative ng/mL (Negative) 08/23/21 17:27 U Benzodiazepines Scrn Negative ng/mL (Negative) 08/23/21 17:27 Urine Cocaine Screen Negative ng/mL (Negative) 08/23/21 17:27 U Marijuana (THC) Screen Positive ng/mL (Negative) H 08/23/21 17:27 Discharge Plan Discharge Patient Disposition: Admitted As Inpatient Admit Provider: Miroslava Ridley Clinical Impression: Cellulitis, Abdominal wall mass Condition: Stable Coding Level of Care Code ED Head Sulfide Operator for Chg Fwd Documented by User: Apple Corona MD 08/23/21 19:21 HPI - Abdominal Pain General: Chief Complaint: Abdominal Pain Stated Complaint: ABD PAIN X 1 MONTH Time Seen by Provider: 08/23/21 16:35 History of Present Illness: . [facility] [place] ED PFSH: Medical History Alcohol dependence Colitis Diverticular disease of intestine with perforation and abscess Recurrent falls Course Vital Signs: Vital signs: Vital Signs Temperature 97.9 F 08/23/21 22:08 Pulse Rate 82 08/23/21 23:30 Respiratory Rate 17 08/23/21 23:30 Blood Pressure 98/58 08/23/21 23:30 Pulse Oximetry 92 08/23/21 23:30 MDM - Abdominal Pain Medical Decision Making Patient presents here with pain in her left lower quadrant CT does show a abdominal wall mass in the subcu with some signs of infection along with erythema over the mass as well as cellulitis. I did spoke to surgery Dr. Prescott once patient admitted on IV antibiotics to speak to hospitalist who is admitting Dr. Quevedo is consulted. Lab Data : 08/23/21 16:48 08/23/21 16:48 Labs/Radiology: Radiology Impressions Abdomen/Pelvis CT 08/23/21 16:35 IMPRESSION: 1. Lower abdominal wall somewhat multiloculated cystic mass measuring 15 cm craniocaudal by 11 cm AP by 16 cm transverse confined to the subcutaneous fat without intra-abdominal extension along with a small amount of internal air, concerning for an infectious process. 2. Bilateral adrenal hypertrophy suspected. 3. Diverticulosis with some mid sigmoid colon wall thickening in the area of several diverticuli perhaps reflecting associated diverticulitis or short segment colitis in the appropriate clinical setting. Laboratory Results WBC 18.7 10^3/uL (4.0-10.0) H 08/23/21 16:48 RBC 3.53 10^6/uL (4.1-5.3) L 08/23/21 16:48 Hgb 11.7 g/dL (11.5-15.3) 08/23/21 16:48 Hct 33.4 % (37.0-47.0) L 08/23/21 16:48 MCV 94.6 fl (81-99) 08/23/21 16:48 MCH 33.1 pg (28.0-34.0) 08/23/21 16:48 MCHC 35.0 g/dL (30.0-36.0) 08/23/21 16:48 RDW 12.9 % (12.1-15.1) 08/23/21 16:48 Plt Count 443 10^3/cmm (130-400) H 08/23/21 16:48 MPV 9.2 fL (7.4-10.4) 08/23/21 16:48 Neut % (Auto) 85.0 % 08/23/21 16:48 Lymph % (Auto) 7.5 % 08/23/21 16:48 Lewis % (Auto) 6.3 % 08/23/21 16:48 Eos % (Auto) 0.1 % 08/23/21 16:48 Baso % (Auto) 0.4 % 08/23/21 16:48 Neut # (Auto) 15.91 10^3/uL (1.8-7.7) H 08/23/21 16:48 Lymph # (Auto) 1.4 10^3/uL (0.8-4.8) 08/23/21 16:48 Lewis # (Auto) 1.2 10^3/uL (0.2-0.9) H 08/23/21 16:48 Eos # (Auto) 0.0 10^3/uL (0.0-0.8) 08/23/21 16:48 Baso # (Auto) 0.1 10^3/uL (0.0-0.1) 08/23/21 16:48 Nucleated RBC % (auto) 0 % 08/23/21 16:48 Nucleated RBCs # 0.0 /100WBC 08/23/21 16:48 Sodium 128 mmol/L (136-145) L 08/23/21 16:48 Potassium 4.3 mmol/L (3.5-5.1) 08/23/21 16:48 Chloride 92 mmol/L (98-107) L 08/23/21 16:48 Carbon Dioxide 25 mmol/L (22-29) 08/23/21 16:48 Anion Gap 15.3 (5-19) 08/23/21 16:48 BUN 12 mg/dL (8-23) 08/23/21 16:48 Creatinine 0.6 mg/dL (0.5-0.9) 08/23/21 16:48 GFR Calculation 101.3 mL/min (90-130) 08/23/21 16:48 Glucose 128 mg/dL (65-115) H 08/23/21 16:48 Calculated Osmolality 267 mOsm/kg (285-295) L 08/23/21 16:48 Lactic Acid 3.1 mmol/L (0.5-2.2) H 08/23/21 18:19 Calcium 9.7 mg/dL (8.5-10.5) 08/23/21 16:48 Total Bilirubin 0.5 mg/dL (0.15-1.2) 08/23/21 16:48 AST 17 U/L (0-32) 08/23/21 16:48 ALT 16 U/L (0-33) 08/23/21 16:48 Alkaline Phosphatase 130 IU/L (35-105) H 08/23/21 16:48 Total Protein 6.9 g/dL (6.6-8.7) 08/23/21 16:48 Albumin 3.1 g/dL (3.5-5.2) L 08/23/21 16:48 Globulin 3.8 g/dL (1.3-4.6) 08/23/21 16:48 Urine Color Yellow (Yellow) 08/23/21 17: Urine Appearance Clear (CLEAR) 08/23/21 17:27 Urine pH 7 (5-7) 08/23/21 17:27 Ur Specific Interior 1.005 (1.005-1.030) 08/23/21 17:27 Urine Protein Neg (Negative) 08/23/21 17:27 Urine Glucose (UA) Norm (Normal) 08/23/21 17:27 Urine Ketones Negative (Negative) 08/23/21 17:27 Urine Blood Neg (Negative) 08/23/21 17: Urine Nitrate Negative (Negative) 08/23/21 17: Urine Bilirubin Neg (Negative) 08/23/21 17:27 Urine Urobilinogen Norm mg/dL (Negative) 08/23/21 17:27 Ur Leukocyte Esterase Negative (Negative) 08/23/21 17: Urine Opiates Screen Negative ng/mL (Negative) 08/23/21 17: Ur Barbiturates Screen Negative ng/mL (Negative) 08/23/21 17:27 Ur Phencyclidine Scrn Negative ng/mL (Negative) 08/23/21 17:27 Ur Amphetamines Screen Negative ng/mL (Negative) 08/23/21 17:27 U Benzodiazepines Scrn Negative ng/mL (Negative) 08/23/21 17:27 Urine Cocaine Screen Negative ng/mL (Negative) 08/23/21 17:27 U Marijuana (THC) Screen Positive ng/mL (Negative) H 08/23/21 17:27 Discharge Plan Discharge Patient Disposition: Admitted As Inpatient Admit Provider: Miroslava Ridley Clinical Impression: Cellulitis, Abdominal wall mass Condition: Stable Coding Level of Care Code ED Head Sulfide Operator for Maged Gallegos
--- NOTE | 2021-08-23 16:36 | ECG_ITS ---
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 Measurements Intervals Bud Rate: 90 P: 5 ND: 126 QRS: 48 QRSD: 100 T: 52 QT: 362 QTc: 444 Interpretive Statements SINUS RHYTHM POSSIBLE RIGHT VENTRICULAR CONDUCTION DELAY [RSR (QR) IN V1/V2] MODERATE T-WAVE ABNORMALITY, CONSIDER ANTERIOR ISCHEMIA [-0.1+ mV T-WAVE IN V3/V4] Compared to ECG 05/08/2021 16:15:19 T-wave abnormality now present Possible ischemia now present Incomplete right bundle-branch block no longer present Electronically Signed On 08-23-2021 17:39:54 LEARNING PROGRAM MANAGER by Stephanie Laurent M.D. [email or web address]
[2021-08-23 16:42] VITALS: BP 106/73; PULSE 104; RESP 18; TEMP 37.1; O2SAT 22; BMI 25.7
[2021-08-23 16:48] VITALS: BP 106/73; PULSE 100; RESP 17; O2SAT 98
[2021-08-23 17:00] LABS: Basophils # 0.1 10^3/uL (0.0-0.1); Basophils % 0.4 %; Eosinophils % 0.1 %; Hematocrit 33.4 % (37.0-47.0); Hemoglobin 11.7 g/dL (11.5-15.3); Lymphocytes # 1.4 10^3/uL (0.8-4.8); Lymphocytes % 7.5 %; Mean Corpuscular Hemoglobin 33.1 pg (28.0-34.0); Mean Corpuscular Volume 94.6 fl (81-99); Mean Platelet Volume 9.2 fL (7.4-10.4); Monocytes # 1.2 10^3/uL (0.2-0.9); Monocytes % 6.3 %; Neutrophils # 15.91 10^3/uL (1.8-7.7); Nucleated Red Blood Cells % 0 %; Platelet Count 443 10^3/cmm (130-400); Red Blood Count 3.53 10^6/uL (4.1-5.3); Red Cell Distribution Width 12.9 % (12.1-15.1); White Blood Count 18.7 10^3/uL (4.0-10.0)
[2021-08-23 17:28] LABS: Alanine Aminotransferase 16 U/L (0-33); Albumin Level 3.1 g/dL (3.5-5.2); Alkaline Phosphatase 130 IU/L (35-105); Anion Gap 15.3 (5-19); Aspartate Amino Transferase 17 U/L (0-32); Blood Urea Nitrogen 12 mg/dL (8-23); Calcium 9.7 mg/dL (8.5-10.5); Carbon Dioxide 25 mmol/L (22-29); Chloride 92 mmol/L (98-107); Globulin 3.8 g/dL (1.3-4.6); Glomerular Filtration Rate 101.3 mL/min (90-130); Glucose 128 mg/dL (65-115); Osmolality Calculated 267 mOsm/kg (285-295); Potassium 4.3 mmol/L (3.5-5.1); Sodium 128 mmol/L (136-145); Total Bilirubin 0.5 mg/dL (0.15-1.2); Total Protein 6.9 g/dL (6.6-8.7)
[2021-08-23] MEDS: lactated ringers 1,000 ML 999 ML IV ×2 (17:35→18:01)
[2021-08-23 17:48] LABS: Add Urine Microscopic? NO; Charge for UA Resulting for Rev
[2021-08-23 17:57] LABS: Bilirubin Urine Neg (Negative); Blood Urine Neg (Negative); Glucose Urine UA Norm (Normal); Ketones Urine Negative (Negative); Leukocyte Esterase Urine Negative (Negative); Nitrate Urine Negative (Negative); Protein Urine Neg (Negative); Specific Gravity, Urine 1.005 (1.005-1.030); Urine Appearance Clear (CLEAR); Urine Color Yellow (Yellow); Urobilinogen Urine Norm (Negative); pH Urine 7 (5-7)
[2021-08-23] MEDS: iohexol 300 mg/mL 100 mL Btl IV (18:12)
[2021-08-23] MEDS: metroNIDAZOLE IV 500 MG/100 ML PREMIX 100 MG IV (18:32)
[2021-08-23] MEDS: ciprofloxacin 400 MG/200 ML PREMIX 200 MG IV (18:35)
[2021-08-23 18:43] VITALS: BP 113/74; PULSE 85; RESP 21; O2SAT 94
[2021-08-23 19:15] LABS: Lactic Sepsis W/Reflex 3.1 mmol/L (0.5-2.2)
[2021-08-23 20:20] LABS: Reflex Lactate Order REFLEX LACTIC ORDERD
[2021-08-23 22:03] VITALS: BMI 27.1
[2021-08-23 22:08] VITALS: BP 103/68; PULSE 100; RESP 18; TEMP 36.6; O2SAT 97
--- NOTE | 2021-08-23 22:14 | P.HP_ITS ---
Providers/Chief Complaint Admitting Physician: Miroslava Ridley MD Chief Complaint: ABD PAIN X 1 MONTH History of Present Illness Vero Meyer is a 61 year old female with h/o alcohol dependence, recurrent falls presented to ER today with abdominal pain that developed subacutely over the past 10-15 days. She has additionally noticed an increasing right abdominal mass since July 2021, which has reportedly increased dramatically in size over the past week and is also now painful. CT of the abdomen showed a complex cystic fluid collection in the abdominal wall , not communicating with the abdominal cavity. Per patient this mass appears to be at the site of a previosuly placed pigtail catheter which was placed in October 2020 t [facility] in [place] to drain a diverticular abscess which had resulted as a complication of diverticulitis. Patient was recommended to follow up with colonoscopy and colorectal surgery, however she elected to return home to [place] and has not had any subsequent follow up. Denies this abdominal site to be site of injury or hematoma from her recurrent falls. Review of Systems General: Reports: 10 or more systems reviewed and unremarkable except in HPI and below Const: Denies: fever(s), chills or body aches Eyes: Denies: change in vision, blurry vision or photophobia ENMT: Reports: hoarseness; Denies: throat pain, enlarged tonsils, odynophagia or nasal congestion Card: Denies: chest pain, palpitations, irregular heart rhythm, edema, swelling of feet/ankles, lightheadedness, pre-syncope, dyspnea on exertion or orthopnea Resp: Denies: dyspnea, productive cough, non-productive cough, wheezing, stridor, pain on inspiration, change in phlegm color, hemoptysis or chest congestion GI: Denies: abdominal pain, nausea, vomiting, hematemesis, coffee ground emesis, dysphagia, heartburn, diarrhea, constipation, GI cramping, change in stool character, hematochezia or melena : Denies: flank pain, difficulty voiding, dysuria, urinary frequency, urinary urgency, urinary hesitancy or hematuria Musc: Denies: neck pain, back pain, extremity pain, joint swelling, joint warmth or deformity Neuro: Denies: headache(s), numbness in extremities, weakness in extremities, sensory changes, difficulty walking, frequent falls, dizziness, vertigo, behavioral changes, Slurred speech present or seizure-like activity Psych: Denies: anxiety, depression, suicidal ideation or homicidal ideation Endo: Denies: polyuria, polydipsia, tired all the time, cold intolerance or hot flashes Ross/Lymph: Denies: easy bruising or easy bleeding Medications/Allergies Allergies Allergy/AdvReac Type Severity Reaction Status Date / Time nickel Allergy ALGY-Rash Verified 08/23/21 16:49 tramadol Allergy Unknown Verified 08/23/21 16:50 Sulfa (Sulfonamide AdvReac ADR-Cramping Verified 08/23/21 22:02 Antibiotics) of the Muscles PFSH Acute PFSH: Medical History Alcohol dependence Colitis Diverticular disease of intestine with perforation and abscess Recurrent falls Vitals/I&O/Wt Last Vital Signs Temp 98.8 F 08/23/21 16:42 Pulse 85 08/23/21 18:43 Resp 21 H 08/23/21 18:43 BP 113/74 08/23/21 18:43 Pulse Ox 94 08/23/21 18:43 08/23/21 08/23/21 08/23/21 06:59 14:59 22:59 Intake Total 1732.9 / 1732.9 Balance 1732.9 / 1732.9 Weight last 48 hrs Weight 71.668 kg Weight 68.039 kg Physical Exam Narrative: GEN: Awake, alert and oriented, no acute distress CVS: S1S2 N RS: CTA B/L Abd: Soft, nt/nd , bs+ , anterior abdominal wall mass RIGGING MAN: no focal neuro deficits Data : 08/24/21 04:35 08/24/21 04:35 Other Labs: Radiology Impressions Abdomen/Pelvis CT 08/23/21 16:35 IMPRESSION: 1. Lower abdominal wall somewhat multiloculated cystic mass measuring 15 cm craniocaudal by 11 cm AP by 16 cm transverse confined to the subcutaneous fat without intra-abdominal extension along with a small amount of internal air, concerning for an infectious process. 2. Bilateral adrenal hypertrophy suspected. 3. Diverticulosis with some mid sigmoid colon wall thickening in the area of several diverticuli perhaps reflecting associated diverticulitis or short segment colitis in the appropriate clinical setting. Laboratory Results WBC 18.7 10^3/uL (4.0-10.0) H 08/23/21 16:48 RBC 3.53 10^6/uL (4.1-5.3) L 08/23/21 16:48 Hgb 11.7 g/dL (11.5-15.3) 08/23/21 16:48 Hct 33.4 % (37.0-47.0) L 08/23/21 16:48 MCV 94.6 fl (81-99) 08/23/21 16:48 MCH 33.1 pg (28.0-34.0) 08/23/21 16:48 MCHC 35.0 g/dL (30.0-36.0) 08/23/21 16:48 RDW 12.9 % (12.1-15.1) 08/23/21 16:48 Plt Count 443 10^3/cmm (130-400) H 08/23/21 16:48 MPV 9.2 fL (7.4-10.4) 08/23/21 16:48 Neut % (Auto) 85.0 % 08/23/21 16:48 Lymph % (Auto) 7.5 % 08/23/21 16:48 [place] % (Auto) 6.3 % 08/23/21 16:48 Eos % (Auto) 0.1 % 08/23/21 16:48 Baso % (Auto) 0.4 % 08/23/21 16:48 Neut # (Auto) 15.91 10^3/uL (1.8-7.7) H 08/23/21 16:48 Lymph # (Auto) 1.4 10^3/uL (0.8-4.8) 08/23/21 16:48 [place] # (Auto) 1.2 10^3/uL (0.2-0.9) H 08/23/21 16:48 Eos # (Auto) 0.0 10^3/uL (0.0-0.8) 08/23/21 16:48 Baso # (Auto) 0.1 10^3/uL (0.0-0.1) 08/23/21 16:48 Nucleated RBC % (auto) 0 % 08/23/21 16:48 Nucleated RBCs # 0.0 /100WBC 08/23/21 16:48 Sodium 128 mmol/L (136-145) L 08/23/21 16:48 Potassium 4.3 mmol/L (3.5-5.1) 08/23/21 16:48 Chloride 92 mmol/L (98-107) L 08/23/21 16:48 Carbon Dioxide 25 mmol/L (22-29) 08/23/21 16:48 Anion Gap 15.3 (5-19) 08/23/21 16:48 BUN 12 mg/dL (8-23) 08/23/21 16:48 Creatinine 0.6 mg/dL (0.5-0.9) 08/23/21 16:48 GFR Calculation 101.3 mL/min (90-130) 08/23/21 16:48 Glucose 128 mg/dL (65-115) H 08/23/21 16:48 Calculated Osmolality 267 mOsm/kg (285-295) L 08/23/21 16:48 Lactic Acid 3.1 mmol/L (0.5-2.2) H 08/23/21 18:19 Lactic Acid (Sepsis) 1.0 mmol/L (0.5-2.2) 08/23/21 20:52 Calcium 9.7 mg/dL (8.5-10.5) 08/23/21 16:48 Total Bilirubin 0.5 mg/dL (0.15-1.2) 08/23/21 16:48 AST 17 U/L (0-32) 08/23/21 16:48 ALT 16 U/L (0-33) 08/23/21 16:48 Alkaline Phosphatase 130 IU/L (35-105) H 08/23/21 16:48 Total Protein 6.9 g/dL (6.6-8.7) 08/23/21 16:48 Albumin 3.1 g/dL (3.5-5.2) L 08/23/21 16:48 Globulin 3.8 g/dL (1.3-4.6) 08/23/21 16:48 Urine Color Yellow (Yellow) 08/23/21 17:27 Urine Appearance Clear (CLEAR) 08/23/21 17:27 Urine pH 7 (5-7) 08/23/21 17:27 Ur Specific [place] 1.005 (1.005-1.030) 08/23/21 17:27 Urine Protein Neg (Negative) 08/23/21 17:27 Urine Glucose (UA) Norm (Normal) 08/23/21 17:27 Urine Ketones Negative (Negative) 08/23/21 17:27 Urine Blood Neg (Negative) 08/23/21 17:27 Urine Nitrate Negative (Negative) 08/23/21 17:27 Urine Bilirubin Neg (Negative) 08/23/21 17:27 Urine Urobilinogen Norm mg/dL (Negative) 08/23/21 17:27 Ur Leukocyte Esterase Negative (Negative) 08/23/21 17:27 Urine Opiates Screen Negative ng/mL (Negative) 08/23/21 17:27 Ur Barbiturates Screen Negative ng/mL (Negative) 08/23/21 17:27 Ur Phencyclidine Scrn Negative ng/mL (Negative) 08/23/21 17:27 Ur Amphetamines Screen Negative ng/mL (Negative) 08/23/21 17:27 U Benzodiazepines Scrn Negative ng/mL (Negative) 08/23/21 17:27 Urine Cocaine Screen Negative ng/mL (Negative) 08/23/21 17:27 U Marijuana (THC) Screen Positive ng/mL (Negative) H 08/23/21 17:27 Ethyl Alcohol < 10 mg/dL (0-10) 08/23/21 20:52 Micro: Microbiology 08/23/21 19:39 Blood Culture - Preliminary Blood SPECIMEN COLLECTED 08/23/21 18:19 Blood Culture - Preliminary Blood SPECIMEN COLLECTED A&P Assessment and plan (1) Cellulitis: Status: Acute (2) Abdominal wall mass: Cystic mass as noted above concerning for abscess in abdominal wall swelling is warm, soft, erythematous and tender Gen/srg consulted to asses for possible drainage Ceftriaxone 1g iv q24h in the interim. received vancomycin x 1 in ER. Further abx course dependent on cx and gram stain Incidental note made of colitis on CT, however patient curently without signs and symptoms of colitis Status: Acute Attestations Medical Necessity Statement*: >2midnight anticipated for management of abdominal wall mass, suspected abscess, awaiting surgery assessment, iv abx Coding Level of Care Code Acute [employer] Math Teacher for g Fwd Diagnoses Cellulitis L03.90 Abdominal wall mass R22.2
[2021-08-23 22:29] LABS: Amphetamines Screen Urine Negative (Negative); Barbiturates Screen Urine Negative (Negative); Benzodiazepines Screen Urine Negative (Negative); Cocaine Screen Urine Negative (Negative); Opiate Screen Urine Negative (Negative); PCP Screen Urine Negative (Negative); THC Screen Urine Positive (Negative)
[2021-08-23 22:31] LABS: Alcohol Level < 10 mg/dL (0-10)
[2021-08-23] MEDS: cefTRIAXone 1,000 MG in sodium chloride 0.9% (plus) 50 ML 100 MG IV (22:51)
[2021-08-23] MEDS: vancomycin 1,000 MG in sodium chloride 0.9% 250 ML 250 MG IV (23:24)
[2021-08-23 23:30] VITALS: BP 98/58; PULSE 82; RESP 17; O2SAT 92
[2021-08-24] VITALS (21 sets, daily range): BP systolic 78–126; BP diastolic 48–81; PULSE 53–84; RESP 13–20; TEMP 36.3–37.1; O2SAT 90–99
[2021-08-24 01:02] LABS: Potassium, Radom Urine 39 mmol/L; Urine Random Chloride 27 mmol/L; Urine Random Sodium 37 mmol/L
--- NOTE | 2021-08-24 02:09 | PC.NURSE ---
1 pack of cigarettes, 1 granulizing machine operator, and 1 bottle of nitro tablets collected from patient and placed in pyxis with patient label.
[2021-08-24 05:10] LABS: Basophils # 0.1 10^3/uL (0.0-0.1); Basophils % 0.5 %; Eosinophils # 0.1 10^3/uL (0.0-0.8); Eosinophils % 0.5 %; Hematocrit 35.7 % (37.0-47.0); Hemoglobin 12.2 g/dL (11.5-15.3); Lymphocytes # 2.2 10^3/uL (0.8-4.8); Lymphocytes % 12.3 %; Mean Corpuscular HGB Conc 34.2 g/dL (30.0-36.0); Mean Corpuscular Volume 96.5 fl (81-99); Mean Platelet Volume 9.5 fL (7.4-10.4); Monocytes # 1.3 10^3/uL (0.2-0.9); Monocytes % 7.5 %; Neutrophils # 13.77 10^3/uL (1.8-7.7); Neutrophils % 78.6 %; Nucleated Red Blood Cells % 0 %; Platelet Count 479 10^3/cmm (130-400); White Blood Count 17.5 10^3/uL (4.0-10.0)
[2021-08-24 05:28] LABS: Alanine Aminotransferase 15 U/L (0-33); Albumin Level 3.2 g/dL (3.5-5.2); Alkaline Phosphatase 98 IU/L (35-105); Anion Gap 16.2 (5-19); Aspartate Amino Transferase 12 U/L (0-32); Blood Urea Nitrogen 9 mg/dL (8-23); Calcium 9.4 mg/dL (8.5-10.5); Carbon Dioxide 25 mmol/L (22-29); Chloride 94 mmol/L (98-107); Globulin 3.7 g/dL (1.3-4.6); Glomerular Filtration Rate 84.8 mL/min (90-130); Glucose 102 mg/dL (65-115); Osmolality Calculated 271 mOsm/kg (285-295); Potassium 4.2 mmol/L (3.5-5.1); Sodium 131 mmol/L (136-145); Total Bilirubin 0.5 mg/dL (0.15-1.2); Total Protein 6.9 g/dL (6.6-8.7)
[2021-08-24 05:35] LABS: Procalcitonin 0.28 ng/mL (0-0.5)
--- NOTE | 2021-08-24 07:36 | P.CONIM_ITS ---
Providers/Reason For Consult Consulting Physician/Specialty*: General Surgery Nicanor Quevedo MD Reason for Consult*: Abdominal wall fluid collection/mass. Attending Physician: Geneva Elkins MD History of Present Illness History of Present Illness Vero Meyer is a 61 year old female who says she started having some left lower quadrant abdominal pain perhaps a month ago. She noticed subsequently that she was getting some swelling in that region. It continued the get larger and continued the cause more discomfort. She never sought any medical attention for this until yesterday. She said she has been drinking whiskey at home to co ntrol her discomfort. She has not been running any fevers that she is aware of. She says her bowel habits have been normal. She says the area of the swelling has doubled in size over the past week and she finally had come into the emergency room yesterday because of the discomfort. A CAT scan revealed a sizable probable infectious fluid collection in the abdominal wall. The patient denies any recent trauma to that area. She does mention that she had a percutaneous pigtail catheter in place in [place] last October for what was thought to be a diverticular abscess. She says this is the only issue she has ever had with diverticulitis. She says the pigtail was in there for a month and a half and when the nurses went to remove it they had a lot of difficulty and had to pull on it quite hard. After it was removed, however, she said she did well until just about a month ago when she started having problems in the same region. Review of Systems General: Reports: 10 or more systems reviewed and unremarkable except in HPI and below Const: Denies: fever(s) GI: Reports: abdominal pain Medications/Allergies Home Medications Medication Instructions Recorded Confirmed Last Taken Type Vitamin D3 1 cap PO DAILY 08/24/21 08/24/21 Unknown History albuterol sulfate 90 mcg/actuation 2 puff INHALATION QID PRN 08/24/21 08/24/21 Unknown History aerosol inhaler (Ventolin HFA) aspirin 325 mg tablet 325 mg PO .EVERY 3 DAYS 08/24/21 08/24/21 Unknown History calcium carb 333 mg-vit D3 133 1 tab PO DAILY 08/24/21 08/24/21 Unknown History unit-mag ox 133 mg-zinc oxide 5 mg tab (Bright Mag Zinc Plus D3) multivitamin 1 tab PO DAILY 08/24/21 08/24/21 Unknown History nitroglycerin 0.4 mg sublingual 0.4 mg SUBLINGUAL Q5M PRN 08/24/21 08/24/21 Unknown History tablet (Nitrostat) Allergies Allergy/AdvReac Type Severity Reaction Status Date / Time nickel Allergy ALGY-Rash Verified 08/23/21 16:49 tramadol Allergy Unknown Verified 08/23/21 16:50 Sulfa (Sulfonamide AdvReac ADR-Cramping Verified 08/23/21 22:02 Antibiotics) of the Muscles Current Medications Generic Name Dose Route Start Last Admin Trade Name Freq PRN Reason Stop Dose Admin Ceftriaxone Sodium 1,000 mg/ 50 mls @ 100 mls/hr 08/23/21 22:30 08/23/21 23:30 Sodium Chloride IV Infused Q24H ESTEFANI Infusion Protocol PFSH Acute PFSH: Medical History (Updated 08/24/21 @ 08:01 by Nicanor Quevedo MD) Alcohol dependence Colitis COPD (chronic obstructive pulmonary disease) Diverticular disease of intestine with perforation and abscess Recurrent falls Surgical History (Updated 08/24/21 @ 08:01 by Nicanor Quevedo MD) H/O right wrist surgery Fracture repair History of hysterectomy One of the ovaries was removed History of tonsillectomy History of tubal ligation Social History (Updated 08/24/21 @ 08:02 by Nicanor Quevedo MD) Smoking and tobacco status: current every day smoker cigarettes Packs smoked per day: 0.5 Years cigarettes smoked: 50 [ Other cigarette details: Used to smoke more heavily in the past] Alcohol intake: current Alcohol type: hard liquor Alcohol use comment: Multiple shots a day Vitals/I&O/Wt Last Vital Signs Temp 98.5 F 08/24/21 07:13 Pulse 84 08/24/21 07:13 Resp 13 08/24/21 07:13 BP 100/66 08/24/21 07:13 Pulse Ox 96 08/24/21 07:13 08/23/21 08/24/21 08/24/21 22:59 06:59 14:59 Intake Total 1852.9 / 2152.9 300 / 2152.9 Output Total 800 / 800 Balance 1852.9 / 1352.9 -500 / 1352.9 Weight last 48 hrs Weight 158 lb Weight 150 lb Physical Exam Narrative: The patient was encountered in her hospital room. She does not appear to be in any acute distress. The pupils are equal. No carotid bruits are heard. The lungs are clear anteriorly. The heart is regular. The abdomen reveals an obvious protuberant somewhat fluctuant mass over the midline/left lower quadrant with some erythema on the skin. There are no open wounds. The area is tender to palpation and is quite sizable measuring perhaps 20 cm in diameter. The remainder the abdomen is soft and bowel sounds are present. The extremities reveal no edema. Neurologically the patient appears to be grossly intact. Data : 08/24/21 04:35 08/24/21 04:35 Micro: Microbiology 08/23/21 19:39 Blood Culture - Preliminary Blood SPECIMEN COLLECTED 08/23/21 18:19 Blood Culture - Preliminary Blood SPECIMEN COLLECTED CT Abd/Pel: Radiologist's impression: CT scan abdomen/pelvis to 08/23/2021 IMPRESSION: 1. Lower abdominal wall somewhat multiloculated cystic mass measuring 15 cm craniocaudal by 11 cm AP by 16 cm transverse confined to the subcutaneous fat without intra-abdominal extension along with a small amount of internal air, concerning for an infectious process. 2. Bilateral adrenal hypertrophy suspected. 3. Diverticulosis with some mid sigmoid colon wall thickening in the area of several diverticuli perhaps reflecting associated diverticulitis or short segment colitis in the appropriate clinical setting. A&P Assessment and plan (1) Abdominal wall fluid collections: The patient's history is interesting in that they had quite a bit of difficulty removing a pigtail catheter about 9 months ago that was placed percutaneously for drainage of a diverticular abscess in [place]. It seems unusual, but it makes me wonder if this is related to that procedure in some way, or even if there could be some portion of that catheter that may still be embedded in the abdominal wall. I have discussed an exploration/incision and drainage procedure with the patient. She is agreeable to proceeding today. Status: Acute Consult Attestations Medical Necessity Statement: See admitting service's notation. Coding Level of Care Code Acute Polysomnography Technologist for Maged Gallegos Diagnoses Abdominal wall fluid collections R18.8
[2021-08-24] MEDS: morphine 4 mg/mL SDV 1 mL 2 MG IVP (08:13)
--- NOTE | 2021-08-24 09:21 | PM.PN ---
Subjective Subjective: Patient endorsing pain Afebrile Leukocytosis 29 Dr. Quevedo saw her this morning, plan for intervention at 11 AM She is n.p.o. Vitals/I&O/Wt Last Vital Signs Temp 98.5 F 08/24/21 07:13 Pulse 84 08/24/21 07:13 Resp 18 08/24/21 08:13 BP 100/66 08/24/21 07:13 Pulse Ox 96 08/24/21 07:13 08/23/21 08/24/21 08/24/21 22:59 06:59 14:59 Intake Total 1852.9 / 1852.9 300 / 2152.9 Output Total 800 / 800 Balance 1852.9 / 1852.9 -500 / 1352.9 Weight last 48 hrs Weight 71.668 kg Weight 68.039 kg Physical Exam Narrative: Patient was sitting and patient was sitting comfortably in her bed Saturating well on room air Abdominal wall swelling noted, 12c,, fluctuant, tender to palpate, abdominal protuberance Rest of the abdomen nontender No signs of edema Patient looks dehydrated Hemoglobin PERRLA Nonfocal neuro exam Data : 08/24/21 04:35 08/24/21 04:35 Micro: Microbiology 08/23/21 19:39 Blood Culture - Preliminary Blood SPECIMEN COLLECTED 08/23/21 18:19 Blood Culture - Preliminary Blood SPECIMEN COLLECTED A&P Assessment and plan (1) Abdominal wall fluid collections: Status: Acute (2) Cellulitis: Status: Acute (3) Abdominal wall mass: Status: Acute Plan Plan is for intervention today around [address] Quevedo Continue with fluids and antibiotics Patient is n.p.o. Clinical signs of dehydration Dressing positive for marijuana Lactic acid has improved, this lactic acid seems secondary to dehydration, no febrile events SCDs DVT prophylaxis Attestations Medical Necessity Statement*: Continue medical management Time Spent in Patient Care: 20min Coding Level of Care Code Acute Riveter Automobile Brakes for florencio Fwradha Diagnoses Abdominal wall fluid collections R18.8 Cellulitis L03.90 Abdominal wall mass R22.2
--- NOTE | 2021-08-24 10:04 | PC.CHAP ---
Pastoral Care Encounter/Spiritual Assessment Type of Contact [] Declined publications sales representative visit [] Patient/Family/Request visit [] Outpatient visit [] Follow-up visit [] Physician referral [] Code/Alert [x] Routine visit [] Staff referral [] Actively dying [x] Patient sleeping [] Family support [] [] Out of room [] Palliative care [] [] Receiving care in room [] Pre-surgical visit [] Trauma [] Long length of stay [] ICU visit [] Other: Relational/Emotional Strength [] Patient feels connected with others/family/visitors/staff [] Distress [] Loneliness/isolation [] Abandonment Spirituality of Patient [] Person of Laura [] Attends Oriental Orthodox of their Laura [] Believes in Prayer [] Reads Bible or Anabaptism materials [] There are Spiritual issues to be addressed Photography Assistant Interventions [] Prayer [] Active listening [] Non-anxious presence [] Spiritual/emotional support [] Crisis/trauma care [] Spiritual counseling [] Bereavement support [] Provided bereavement packet [] Provided Bible/devotional materials [] Provided toy/stuffed animal, coloring book to patient or family member [] Provided Communion [] Anointing/[place] [] Salvation [] Completed spiritual assessment [] Other: Impact on Illness or Injury [] Angry [] Fearful [] Anxious [] Often cries [] Exhaustion [] Unable to work [] Unable to attend mormon [] Unable to walk/stand [] Unable to read [] Unable to drive [] Unable to eat/drink [] Unable to sleep [] Unable to be with family [] Patient intubated [] Other: Summary Time spent with patient
--- NOTE | 2021-08-24 10:11 | P.ANESASSM_ITS ---
Pre-Anesthetic Assessment Height/Weight: Height 1.63 m Weight 71.668 kg Temp Pulse Resp BP Pulse Ox 98.7 F 69 15 85/49 96 08/24/21 10:03 08/24/21 10:03 08/24/21 10:03 08/24/21 10:03 08/24/21 10:03 Operation Date: 08/24/21 10:50 Proposed Procedures p Incision And Drainage of abdominal wall abscess(Not Applicable) - Nicanor Quevedo MD Familial anesthetic complications: Throat closed up with thiopental Was Beta Jace taken within 24 hours: N/A Was Clonidine taken within 24 hours: N/A Last intake: > 8hrs Social Tobacco and No alcohol Exam alert, oriented x 3, clear to auscultation bilaterally and regular rate & rhythm Airway Mallampati: Class II Dentition: other (multiple missing, poor dentition) Pulmonary Chronic Obstructive Pulmonary Disease CV/HEM Stable Angina (takes NTG) and Hypertension Neuropsych Transient Ischemic Attack Anesthetic Plan ASA status: 3 Anesthesia: General Risk of > 500 ml blood loss (7ml/kg in children): No Medications/Allergies Home Medications Medication Instructions Recorded Confirmed Last Taken Type Vitamin D3 1 cap PO DAILY 08/24/21 08/24/21 Unknown History albuterol sulfate 90 mcg/actuation 2 puff INHALATION QID PRN 08/24/21 08/24/21 Unknown History aerosol inhaler (Ventolin HFA) aspirin 325 mg tablet 325 mg PO .EVERY 3 DAYS 08/24/21 08/24/21 Unknown History calcium carb 333 mg-vit D3 133 1 tab PO DAILY 08/24/21 08/24/21 Unknown History unit-mag ox 133 mg-zinc oxide 5 mg tab (Bright Mag Zinc Plus D3) multivitamin 1 tab PO DAILY 08/24/21 08/24/21 Unknown History nitroglycerin 0.4 mg sublingual 0.4 mg SUBLINGUAL Q5M PRN 08/24/21 08/24/21 Unknown History tablet (Nitrostat) Allergies Allergy/AdvReac Type Severity Reaction Status Date / Time nickel Allergy ALGY-Rash Verified 08/23/21 16:49 tramadol Allergy Unknown Verified 08/23/21 16:50 Sulfa (Sulfonamide AdvReac ADR-Cramping Verified 08/23/21 22:02 Antibiotics) of the Muscles Current Medications Generic Name Dose Route Start Last Admin Trade Name Freq PRN Reason Stop Dose Admin Morphine Sulfate 2 mg 08/23/21 22:07 08/24/21 08:13 Morphine 4 Mg/Ml Sdv 1 Ml IVP 2 mg Q4H PRN Administration SEVERE PAIN PFSH Anesthesia Medical History (Updated 08/24/21 @ 08:01 by Nicanor Quevedo MD) Alcohol dependence Colitis COPD (chronic obstructive pulmonary disease) Diverticular disease of intestine with perforation and abscess Recurrent falls Surgical History (Updated 08/24/21 @ 08:01 by Nicanor Quevedo MD) H/O right wrist surgery Fracture repair History of hysterectomy One of the ovaries was removed History of tonsillectomy History of tubal ligation Social History (Updated 08/24/21 @ 08:02 by Nicanor Quevedo MD) Smoking and tobacco status: current every day smoker cigarettes Packs smoked per day: 0.5 Years cigarettes smoked: 50 [ Other cigarette details: Used to smoke more heavily in the past] Alcohol intake: current Alcohol type: hard liquor Alcohol use comment: Multiple shots a day Data Anesthesia : 08/24/21 04:35 08/24/21 04:35 Short CBC 08/23/21 08/24/21 Range/Units 16:48 04:35 WBC 18.7 H 17.5 H (4.0-10.0) 10^3/uL Hgb 11.7 12.2 (11.5-15.3) g/dL Hct 33.4 L 35.7 L (37.0-47.0) % MCV 94.6 96.5 (81-99) fl Plt Count 443 H 479 H (130-400) 10^3/cmm Neut % (Auto) 85.0 78.6 % Neut # (Auto) 15.91 H 13.77 H (1.8-7.7) 10^3/uL BMP 08/23/21 08/24/21 16:48 04:35 Sodium 128 L 131 L Potassium 4.3 4.2 Chloride 92 L 94 L Carbon Dioxide 25 25 BUN 12 9 Creatinine 0.6 0.7 Glucose 128 H 102 Calcium 9.7 9.4 Liver Function 08/23/21 08/24/21 Range/Units 16:48 04:35 Total Bilirubin 0.5 0.5 (0.15-1.2) mg/dL AST 17 12 (0-32) U/L ALT 16 15 (0-33) U/L Alkaline Phosphatase 130 H 98 (35-105) IU/L Albumin 3.1 L 3.2 L (3.5-5.2) g/dL Urine 08/23/21 Range/Units 17:27 Urine Color Yellow (Yellow) Urine Appearance Clear (CLEAR) Urine pH 7 (5-7) Ur Specific [place] 1.005 (1.005-1.030) Urine Protein Neg (Negative) Urine Glucose (UA) Norm (Normal) Urine Ketones Negative (Negative) Urine Nitrate Negative (Negative) Urine Bilirubin Neg (Negative) Ur Leukocyte Esterase Negative (Negative) Microbiology 08/23/21 19:39 Blood Culture - Preliminary Blood SPECIMEN COLLECTED 08/23/21 18:19 Blood Culture - Preliminary Blood SPECIMEN COLLECTED Cardiac Studies: No Data to Display
[2021-08-24] MEDS: lactated ringers 1,000 ML 150 ML IV (10:33)
[2021-08-24] MEDS: piperacillin-tazobactam 3.375 GM in sodium chloride 0.9% (plus) 50 ML IV ×2 (12:00→17:54)
--- NOTE | 2021-08-24 12:17 | PM.OP ---
Operative Report Date of procedure: August 24, 2021 Pre-op diagnosis: Abdominal wall abscess. Post-op diagnosis: Same. Procedure done: Incision and drainage of abdominal wall abscess. Specimens removed/disposition: Aerobic and anaerobic cultures of abscess fluid. Surgeon: General Surgery Nicanor Quevedo MD Anesthesia: General (By means of laryngeal mask airway) Estimated blood loss: 5 mL. Complications: None. Procedure: The patient was brought to the operating room and was placed in a supine position on the operating room table. General anesthesia was induced by means of a laryngeal mask airway. The abdomen is prepped and draped in a sterile fashion. A small transverse incision was carried out through the left side of midline over the fluctuant abscess. Immediately some thick yellow malodorous purulent fluid was encountered. Both aerobic and anaerobic cultures were obtained. All of the fluid was suctioned out of the abdominal wall abscess cavity. This totaled 1500 mL in total. The wound was irrigated through the small incision with multiple liters of saline. A finger was used to inspect the entire abscess cavity and no obvious palpable abnormalities were found anywhere. A 19 [place] fluted Heriberto drain was passed into the incision and out through a separate stab incision on the right side of the abdomen. The drain was sewn in place at the skin with a suture of to 0 silk and the drain itself was coiled within the empty abscess cavity. The small transverse incision was closed using some inverted interrupted sutures of to 0 Vicryl in the dermal layer and then the skin was approximated with several skin dakota. A sterile dressing was applied and the patient was taken to the recovery area in stable condition postoperatively.
[2021-08-24] MEDS: fentaNYL 50 mcg/mL INJ 2mL 100 MCG (12:40)
--- NOTE | 2021-08-24 12:56 | ANE.PACU2 ---
Inpatient post-anesthesia follow up: Airway intact: Yes Vital signs: Temperature 98.1 F Pulse Rate 68 Respiratory Rate 18 Blood Pressure 97/58 Pulse Oximetry 98 Oxygen Delivery Me thod Room Air Oxygen Flow Rate Fraction of Inspir ed Oxygen Hydration adequate: Yes Nausea and vomiting: No Pain level: 2 Mental status: Baseline
[2021-08-24] MEDS: thiamine 100 mg Tablet PO (16:09)
[2021-08-24] MEDS: pantoprazole DR 40 mg Tablet PO (16:09)
[2021-08-24] MEDS: folic acid 1 mg Tablet PO (16:09)
[2021-08-24] MEDS: multivitamin therapeutic Tablet 1 TAB PO (16:09)
[2021-08-24] MEDS: dextrose 5%-ns + KCl 20 20 MEQ/1,000 ML BAG 100 MEQ IV (16:56)
[2021-08-24] MEDS: sodium chloride 0.9% 1,000 ML 999 ML IV ×2 (21:03→22:55)
[2021-08-24] MEDS: ketorolac 30 mg/mL INJ 15 MG IVP (21:07)
[2021-08-24] MEDS: vancomycin 750 MG in sodium chloride 0.9% 250 ML 250 MG IV (22:56)
[2021-08-25] VITALS (71 sets, daily range): BP systolic 81–134; BP diastolic 51–94; PULSE 40–86; RESP 14–29; TEMP 36.1–36.4; O2SAT 89–98; BMI 28.6
[2021-08-25] MEDS: diphenhydrAMINE 50 mg/mL SDV 1mL 25 MG IVP (00:45)
--- NOTE | 2021-08-25 00:58 | PC.NURSE ---
Patient was Hypotensive at beginning of shift with pressures 70s/40s, Dr. Ridley gave verbal orders for 1L bolus, BP came up to 80s/50s and Dr. Ridley ordered another 1L bolus. Pt began itching and nurse observed hives developing on patient's legs. Dr. Ridley notified and came to assess patient, hives were spread to legs, abdomen, and arms. Verbal orders given to nurse for 25 mg IVP benadryl and 125 mg IVP Solumedrol and transfer to ICU for possible allergic reaction. Report called to MARCO May and Patient transferred to ICU 12 by bed with all personal belongings.
--- NOTE | 2021-08-25 01:01 | PM.MISC ---
Miscellaneous Note Purpose of Documentation: hypotension, hives Note: At ~8Pm was called by RN to report BP of 78/48mmHg, HR 63, pt asymptomatic. Denies dizziness,syncope. Given 2L IVF bolus without any significant change in BP. At current assesment BP 79/55, HR 63lpm, MAP 61. Additionally now also noted to have hives developing over back of B/L thighs, calves, B/L arms, forehead- reports itching. Patient received CTX, cipro, flagyl and vancomycin yesterday, today abx were broadened to Zosyn and Vancomycin. She has thus far received 2 doses of Zosyn, last started at ~6pm. ?? penicillin allergy. Denies any c/o dyspnea, palpitations, shortness of breath at this time. Given solumedrol 125mg iv and benadryl 25mg IVP. Will start additionally on levophed to maintain MAP >65. check lactate. Concern for anaphylaxis additionally given hypotension and rash however review of BP trend throughout the day shows BP 85/49 at 10AM, 81/54 at 2:30pm and throughout the day has varied between 90-103 systolic at other times. Current Hives does not appear to correlate with acute drop in blood pressure. If develops additional respiratory symptoms or other signs of anaphylaxis, will additionally give epinephrine. For now move patient to ICU for closer monitoring. d/c zosyn. Change abx coverage to cefepime and vancomycin for now.
[2021-08-25 01:42] LABS: Basophils % 0.1 %; Hematocrit 28.8 % (37.0-47.0); Hemoglobin 9.5 g/dL (11.5-15.3); Lymphocytes # 0.8 10^3/uL (0.8-4.8); Lymphocytes % 8.4 %; Mean Corpuscular Hemoglobin 32.8 pg (28.0-34.0); Mean Corpuscular Volume 99.3 fl (81-99); Mean Platelet Volume 9.3 fL (7.4-10.4); Monocytes # 0.3 10^3/uL (0.2-0.9); Monocytes % 3.4 %; Neutrophils # 8.23 10^3/uL (1.8-7.7); Neutrophils % 87.6 %; Nucleated Red Blood Cells % 0 %; Platelet Count 350 10^3/cmm (130-400); White Blood Count 9.4 10^3/uL (4.0-10.0)
[2021-08-25] MEDS: norepinephrine 8 MG in dextrose 5 % 500 ML 7.62 MG IV (01:51)
--- NOTE | 2021-08-25 02:00 | PC.NURSE ---
BP Patient's BP MAP 56. Dr. Ridley in room. Levophed initiated per protocol. Verbal order received to titrate levophed to keep MAP >65 or systolic BP >100.
[2021-08-25] MEDS: cefepime 2,000 MG in sodium chloride 0.9% (plus) 50 ML 100 MG IV ×3 (02:01→12:20)
[2021-08-25 02:06] LABS: Alanine Aminotransferase 10 U/L (0-33); Albumin Level 2.3 g/dL (3.5-5.2); Alkaline Phosphatase 68 IU/L (35-105); Anion Gap 12.3 (5-19); Aspartate Amino Transferase 9 U/L (0-32); Blood Urea Nitrogen 13 mg/dL (8-23); Calcium 7.8 mg/dL (8.5-10.5); Carbon Dioxide 21 mmol/L (22-29); Chloride 106 mmol/L (98-107); Globulin 2.6 g/dL (1.3-4.6); Glomerular Filtration Rate 101.3 mL/min (90-130); Glucose 174 mg/dL (65-115); Osmolality Calculated 284 mOsm/kg (285-295); Potassium 4.3 mmol/L (3.5-5.1); Sodium 135 mmol/L (136-145); Total Bilirubin 0.2 mg/dL (0.15-1.2); Total Protein 4.9 g/dL (6.6-8.7)
[2021-08-25 02:07] LABS: Lactate (Lactic Acid level) 0.9 mmol/L (0.5-2.2)
[2021-08-25] MEDS: HYDROcodone-acetaminophen 5-325 mg Tablet PO ×4 (02:46→19:22)
--- NOTE | 2021-08-25 03:00 | PC.NURSE ---
Levophed Family Contact Patient states Karin Flores as a contact for updates at phone number [phone]. Information to be placed in chart.
--- NOTE | 2021-08-25 06:00 | PC.NURSE ---
Pain Patient states 5 on a numeric 1-10 pain scale is the goal for her. Patient stated did not want tylenol or other measures offered.
--- NOTE | 2021-08-25 07:01 | PM.PN ---
Subjective Subjective: Events of last night noted, but this apparently was already her second dose. Nevertheless, she was moved the ICU and responded well to treatment. She said she feels well this morning. Vitals/I&O/Wt Last Vital Signs Temp 97.6 F 08/25/21 04:00 Pulse 55 L 08/25/21 06:45 Resp 23 H 08/25/21 06:45 BP 126/68 08/25/21 06:45 Pulse Ox 96 08/25/21 06:45 08/24/21 08/25/21 08/25/21 22:59 06:59 14:59 Intake Total 1906.667 / 4956.263 2199.596 / 4956.263 Output Total 150 / 462 312 / 462 Balance 1756.667 / 4494.263 1887.596 / 4494.263 Weight last 48 hrs Weight 167 lb 1.6 oz Weight 158 lb Weight 150 lb Physical Exam Narrative: Abdominal dressings are intact. The Heriberto drain has some cloudy serosanguineous fluid in the bulb. Data : 08/25/21 01:31 08/25/21 01:31 Micro: Microbiology 08/23/21 19:39 Blood Culture - Preliminary Blood NEGATIVE TO DATE 08/23/21 18:19 Blood Culture - Preliminary Blood NEGATIVE TO DATE 08/24/21 12:03 Gram Stain - Final Abdomen A&P Assessment and plan (1) Abdominal wall abscess: Status post incision and drainage of very large abdominal wall abscess on August 24, 2021. The patient appears to have had a probable anaphylactic reaction last night but appears to be doing well today. Gram stain of abscess fluid shows gram-positive cocci and gram negative rods. Continue antibiotics. Await identification. Status: Acute Attestations Medical Necessity Statement*: See admitting service's notation. Coding Level of Care Code Acute Stereotype Molder for Maged Gallegos Diagnoses Abdominal wall abscess L02.211
[2021-08-25] MEDS: albumin 12.5 GM/250 ML VIAL IV (07:13)
[2021-08-25] MEDS: dextrose 5%-ns + KCl 20 20 MEQ/1,000 ML BAG 100 MEQ IV ×2 (07:33→20:26)
[2021-08-25] MEDS: thiamine 100 mg Tablet PO (08:00)
[2021-08-25] MEDS: multivitamin therapeutic Tablet 1 TAB PO (08:00)
[2021-08-25] MEDS: pantoprazole DR 40 mg Tablet PO (08:00)
[2021-08-25] MEDS: folic acid 1 mg Tablet PO (08:00)
--- NOTE | 2021-08-25 09:14 | PC.NURSE ---
requested to talk with dietary about menu.. personnel here assist her.. iv removed right ac space and sited into l arm area
--- NOTE | 2021-08-25 09:39 | PC.NURSE ---
pt called back into room stated my blood pressure to low im having dizzy spells.. levophed gtt restarted at 2 mcg/min
--- NOTE | 2021-08-25 10:22 | PC.NURSE ---
pt request another iv placed as new site is hurting iv placed right upper arm.. ivf moved
--- NOTE | 2021-08-25 10:27 | PC.CHAP ---
Pastoral Care Encounter/Spiritual Assessment Type of Contact [] Declined title i math tutor visit [] Patient/Family/Request visit [] Outpatient visit [] Follow-up visit [] Physician referral [] Code/Alert [x] Routine visit [] Staff referral [] Actively dying [x] Patient sleeping [] Family support [] [] Out of room [] Palliative care [] [] Receiving care in room [] Pre-surgical visit [] Trauma [] Long length of stay [x] ICU visit [] Other: Relational/Emotional Strength [] Patient feels connected with others/family/visitors/staff [] Distress [] Loneliness/isolation [] Abandonment Spirituality of Patient [] Person of Laura [] Attends Rastafari of their Laura [] Believes in Prayer [] Reads Bible or Adventist materials [] There are Spiritual issues to be addressed Inside Sales Account Representative Interventions [x] Prayer [] Active listening [] Non-anxious presence [] Spiritual/emotional support [] Crisis/trauma care [] Spiritual counseling [] Bereavement support [] Provided bereavement packet [] Provided Bible/devotional materials [] Provided toy/stuffed animal, coloring book to patient or family member [] Provided Communion [] Anointing/[place] [] Salvation [x] Completed spiritual assessment [] Other: Impact on Illness or Injury [] Angry [] Fearful [] Anxious [] Often cries [] Exhaustion [] Unable to work [] Unable to attend bahai [] Unable to walk/stand [] Unable to read [] Unable to drive [] Unable to eat/drink [] Unable to sleep [] Unable to be with family [] Patient intubated [] Other: Summary Time spent with patient
[2021-08-25] MEDS: vancomycin 750 MG in sodium chloride 0.9% 250 ML 250 MG IV ×2 (11:02→22:36)
--- NOTE | 2021-08-25 11:08 | P.PN_ITS ---
Subjective Subjective: Patient developed reaction after second dose of Zosyn and Toradol, she was transferred to ICU, patient broke into hives Overnight events noted Levophed has been turned off This morning she is hemodynamically stable Hives have disappeared with steroids and Benadryl She is not complaining of any itching at this point No stridor or wheezing Doing well on room air Tolerating her diet Probably serosanguineous discharge in her drain noted Hemoglobin 9.5 Afebrile No worsening of leukocytosis, remarkable improvement in leukocytosis noted Patient can be transferred out of ICU later today Culture showing gram-negative rods and gram-positive cocci She had 1 small bowel movement today as well Sinus bradycardia noted overnight, will obtain EKG check TSH Vitals/I&O/Wt Last Vital Signs Temp 97.6 F 08/25/21 04:00 Pulse 57 L 08/25/21 09:00 Resp 14 08/25/21 09:00 BP 106/64 08/25/21 09:00 Pulse Ox 98 08/25/21 08:45 08/24/21 08/25/21 08/25/21 22:59 06:59 14:59 Intake Total 1906.667 / 2756.667 2199.596 / 4956.263 2401.541 / 2401.541 Output Total 150 / 150 312 / 462 Balance 1756.667 / 2606.667 1887.596 / 4494.263 2401.541 / 2401.541 Weight last 48 hrs Weight 75.795 kg Weight 71.668 kg Weight 68.039 kg Physical Exam Narrative: I do not appreciate any hives, no signs of hyperemia cellulitis Surgical site is nontender Cloudy serosanguineous discharge in the drain Hemodynamically stable Off levo Awake and alert Doing well on room air No audible stridor or wheezing Nonfocal neuro exam Propria mood and affect Looks still slightly dehydrated S1, S2 Data : 08/25/21 01:31 08/25/21 01:31 Micro: Microbiology 08/23/21 19:39 Blood Culture - Preliminary Blood NEGATIVE TO DATE 08/23/21 18:19 Blood Culture - Preliminary Blood NEGATIVE TO DATE 08/24/21 12:03 Gram Stain - Final Abdomen A&P Assessment and plan (1) Abdominal wall abscess: Status: Acute (2) Cellulitis: Status: Acute (3) Bradycardia: Status: Acute (4) Drug reaction: Status: Acute Plan Abdominal wall abscess status post removal 08/24, 1500 mL of pus removed, Gram-positive cocci and gram-negative rods noted Continue cefepime and vancomycin Overnight events noted, drug reaction, off levo, no signs of stridor, shortness of breath, not requiring oxygen No leukocytosis or febrile events We will obtain echo, check TSH, noted bradycardia, check troponin and twelve- lead EKG Discontinue steroids Patient is on regular diet, had 1 bowel movement Can be transferred out of ICU if stays stable by tonight Full code Continue thiamine and folic acid Attestations Medical Necessity Statement*: Continue hospitalization, Time Spent in Patient Care: 25mins Coding Level of Care Code Acute Referral Rn for [facility] John Pauld Diagnoses Abdominal wall abscess L02.211 Cellulitis L03.90 Bradycardia R00.1 Drug reaction T50.905A
--- NOTE | 2021-08-25 11:11 | ECG_ITS ---
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 Measurements Intervals [place] Rate: 50 P: 13 AL: 143 QRS: 16 QRSD: 94 T: 15 QT: 483 QTc: 442 Interpretive Statements SINUS BRADYCARDIA WITH OCCASIONAL SUPRAVENTRICULAR PREMATURE COMPLEXES POSSIBLE RIGHT VENTRICULAR CONDUCTION DELAY [RSR (QR) IN V1/V2] Compared to ECG 08/23/2021 17:24:19 Sinus rhythm no longer present T-wave abnormality no longer present Possible ischemia no longer present Electronically Signed On 08-26-2021 12:28:25 AWNING HANGER HELPER by Tobi Skaggs M.D. [id number]
--- NOTE | 2021-08-25 11:13 | USCV_ITS ---
Vero Meyer Age: 61 Gender: F : 1960 Exam Date: 08/25/2021 16:16 Ordering Phys: Geneva Elkins MD Technologist: TRISTA [place]am Location[place] [facility] [place]ication: HYPOTENSIVE, BRADYCARDIA BP: 89 / 57 HR: 51 Rhythm: Sinus Technical Quality: Suboptimal MEASUREMENTS (Male / Female) Normal Values 2D ECHO LV Diastolic Diameter PLAX 4.5 cm 4.2 - 5.9 / 3.9 - 5.3 cm LV Systolic Diameter PLAX 3.3 cm IVS Diastolic Thickness 1.3 cm 0.6 - 1.0 / 0.6 - 0.9 cm IVS Systolic Thickness 1.8 cm LVPW Diastolic Thickness 1.1 cm 0.6 - 1.0 / 0.6 - 0.9 cm LVPW Systolic Thickness 2.0 cm LVOT Diameter 2.0 cm LV Ejection Fraction 2D Teich 52.5 % LV Ejection Fraction MOD 2C 73.5 % LV Ejection Fraction 2C AL 73.5 % LA Diameter 3.4 cm LA Width 3.5 cm LA Height 5.4 cm RA Width 3.7 cm RA Height 4.7 cm Aorta at Sinotubular Diameter 2.0 cm M-MODE Aortic Annulus Diameter 3.4 cm LA Ao Ratio MM 1.0 MV E Point Septal Separation 0.9 cm DOPPLER AV Peak Velocity 182.0 cm/s LVOT Peak Velocity 142.0 cm/s AV Area Cont Eq vti 2.5 cm squared AV Area Cont Eq pk 2.5 cm squared MV Peak Velocity 98.0 cm/s MV Area PHT 3.1 cm squared Mitral E to A Ratio 1.3 MV E' Velocity 60.0 cm/s Mitral E to MV E' Ratio 8.2 Mitral E to LV E' Lateral Ratio 7.7 Mitral E to LV E' Septal Ratio 8.7 TR Peak Velocity 154.7 cm/s TR Peak Gradient 9.6 mmHg TR Mean Velocity 119.2 cm/s TR Mean Gradient 5.9 mmHg TR Velocity Time Integral 36.8 cm TV Peak E Velocity 59.0 cm/s Right Atrial Pressure 3.0 mmHg Pulmonary Artery Systolic Pressu 12.6 mmHg PV Peak Velocity 82.0 cm/s RV Acceleration Time 0.1 s RV Ejection Time 0.3 s RV AcT/ET 0.3 FINDINGS Left Ventricle Normal left ventricular size, systolic function and wall thickness, with no regional wall motion abnormalities. Grade I/IV diastolic dysfunction (abnormal relaxation filling pattern), normal to mildly elevated filling pressures. Left ventricular ejection fraction is estimated at 65 %. Right Ventricle Normal right ventricular size and systolic function. Right Atrium Normal right atrial size. Left Atrium Mildly increased left atrial size. Mitral Valve Structurally normal mitral valve. No mitral valve regurgitation. Aortic Valve Structurally normal trileaflet aortic valve. No aortic valve regurgitation. No aortic valve stenosis. Tricuspid Valve Structurally normal tricuspid valve. No tricuspid valve regurgitation. Pulmonic Valve Structurally normal pulmonic valve. Pericardium No pericardial effusion. Aorta Normal size aortic root and proximal ascending aorta. CONCLUSIONS Normal right left ventricular systolic function, ejection fraction 65%. Grade 1 diastolic dysfunction. No valvular abnormalities. Dr. Tobi Skaggs MD (Electronically Signed) Final Date: 26 August 2021 13:07 S
[2021-08-25 12:05] LABS: Troponin(5th) Baseline 6 ng/L (0-10)
[2021-08-25 12:12] LABS: Thyroid Stimulating Hormone 0.55 uIU/mL (0.27-4.20)
[2021-08-25 13:38] LABS: Troponin 5 2HR 6.45 ng/L (0-10)
[2021-08-25 14:47] LABS: Troponin 5 2HR Delta 0.45 ABS# (0-10)
--- NOTE | 2021-08-25 17:14 | ECG_ITS ---
[facility] Test Date: 2021-08-25 Pat Name: Vero Meyer Department: Room: ICU12 Gender: Female Desktop Support Technician: : 1960 Requested By: Geneva Elkins Order Number: [id number] Erica MD: Tobi Skaggs M.D. Measurements Intervals [place] Rate: 58 P: 15 [place]: 145 QRS: 15 QRSD: 98 T: 19 QT: 455 QTc: 449 Interpretive Statements SINUS BRADYCARDIA WITH OCCASIONAL SUPRAVENTRICULAR PREMATURE COMPLEXES LOW QRS VOLTAGE IN PRECORDIAL LEADS [QRS DEFLECTION < 1.0 mV IN CHEST LEADS] POSSIBLE RIGHT VENTRICULAR CONDUCTION DELAY [RSR (QR) IN V1/V2] Compared to ECG 08/25/2021 13:53:19 Low QRS voltage now present Electronically Signed On 08-26-2021 12:30:00 CLOTHING PRESSER by Tobi Skaggs M.D. [id number]
--- NOTE | 2021-08-25 17:52 | NUR.SHIFT ---
Shift Note Frequent safety and comfort rounds continue. Orders and/or nursing care completed as indicated. Patient monitored for response to intervention and treatment(s). Education provided includes[]. Patient and/or patient relations representative [ResponseToTeaching]. Will continue to monitor. up to bedside commode voiding freely ..
[2021-08-25 18:04] LABS: Troponin 5 6HR Delta 0 ng/L (0-12)
[2021-08-26] VITALS (37 sets, daily range): BP systolic 84–139; BP diastolic 43–87; PULSE 41–77; RESP 10–42; TEMP 36.3–36.5; O2SAT 79–100
[2021-08-26] MEDS: HYDROcodone-acetaminophen 5-325 mg Tablet PO ×3 (01:57→21:04)
[2021-08-26 04:04] LABS: Basophils % 0.1 %; Eosinophils % 0.3 %; Hematocrit 27.8 % (37.0-47.0); Hemoglobin 8.8 g/dL (11.5-15.3); Lymphocytes # 1.8 10^3/uL (0.8-4.8); Lymphocytes % 12.5 %; Mean Corpuscular HGB Conc 31.7 g/dL (30.0-36.0); Mean Corpuscular Hemoglobin 32.5 pg (28.0-34.0); Mean Corpuscular Volume 102.6 fl (81-99); Mean Platelet Volume 9.6 fL (7.4-10.4); Monocytes # 0.6 10^3/uL (0.2-0.9); Monocytes % 4.5 %; Neutrophils # 11.77 10^3/uL (1.8-7.7); Neutrophils % 81.8 %; Nucleated Red Blood Cells % 0 %; Platelet Count 357 10^3/cmm (130-400); Red Blood Count 2.71 10^6/uL (4.1-5.3); Red Cell Distribution Width 13.1 % (12.1-15.1); White Blood Count 14.4 10^3/uL (4.0-10.0)
[2021-08-26 04:23] LABS: Alanine Aminotransferase 10 U/L (0-33); Albumin Level 2.6 g/dL (3.5-5.2); Alkaline Phosphatase 62 IU/L (35-105); Anion Gap 11.7 (5-19); Aspartate Amino Transferase 7 U/L (0-32); Blood Urea Nitrogen 12 mg/dL (8-23); Calcium 8.6 mg/dL (8.5-10.5); Carbon Dioxide 20 mmol/L (22-29); Chloride 109 mmol/L (98-107); Globulin 2.3 g/dL (1.3-4.6); Glomerular Filtration Rate 84.8 mL/min (90-130); Glucose 172 mg/dL (65-115); Osmolality Calculated 286 mOsm/kg (285-295); Potassium 4.7 mmol/L (3.5-5.1); Sodium 136 mmol/L (136-145); Total Bilirubin 0.2 mg/dL (0.15-1.2); Total Protein 4.9 g/dL (6.6-8.7)
--- NOTE | 2021-08-26 06:48 | PM.PN ---
Subjective Subjective: The patient says she continues to feel well. Vitals/I&O/Wt Last Vital Signs Temp 97.3 F L 08/26/21 05:30 Pulse 52 L 08/26/21 05:48 Resp 20 H 08/26/21 05:30 BP 115/65 08/26/21 05:30 Pulse Ox 95 08/26/21 05:30 08/25/21 08/25/21 08/26/21 14:59 22:59 06:59 Intake Total 3061.541 / 4888.668 1450 / 4888.668 377.127 / 4888.668 Output Total 1110 / 1730 620 / 1730 Balance 3061.541 / 3158.668 340 / 3158.668 -242.873 / 3158.668 Weight last 48 hrs Weight 178 lb Weight 167 lb 1.6 oz Physical Exam Narrative: The Heriberto drain has minimal serosanguineous fluid in the bulb. The abdominal dressings are intact. Data : 08/26/21 03:41 08/26/21 03:41 Micro: Microbiology 08/24/21 12:03 Gram Stain - Final Abdomen Anaerobic Culture - Preliminary Abscess Culture - Preliminary Gram Negative Rods A&P Assessment and plan (1) Abdominal wall abscess: Status post incision and drainage of very large abdominal wall abscess on August 24, 2021. Intraoperative findings discussed with patient. I told her I have difficulty telling her where this came from. Abdominal abscess cultures are primarily growing gram-negative rods. Identification and sensitivities to follow. Status: Acute Attestations Medical Necessity Statement*: See admitting service's notation. Coding Level of Care Code Acute E Commerce Retailer for [facility] Diagnoses Abdominal wall abscess L02.211
[2021-08-26] MEDS: thiamine 100 mg Tablet PO (08:24)
[2021-08-26] MEDS: folic acid 1 mg Tablet PO (08:24)
[2021-08-26] MEDS: multivitamin therapeutic Tablet 1 TAB PO (08:24)
[2021-08-26] MEDS: pantoprazole DR 40 mg Tablet PO (08:31)
--- NOTE | 2021-08-26 08:37 | PC.NURSE ---
Pt encouraged to wear SCD's but pleasantly refused. States she gets too hot and has been moving my legs. Educated pt regard risk of blood clots. Pt states she is aware. Stated she also had on SYLVIA hose but they were too tight and had to come off. Pt indicated understanding regarding risk of blood clots and potential stroke risk.
--- NOTE | 2021-08-26 10:15 | PC.CHAP ---
Pastoral Care Encounter/Spiritual Assessment Type of Contact [] Declined baker apprentice visit [] Patient/Family/Request visit [] Outpatient visit [] Follow-up visit [] Physician referral [] Code/Alert [x] Routine visit [] Staff referral [] Actively dying [x] Patient sleeping [] Family support [] [] Out of room [] Palliative care [] [] Receiving care in room [] Pre-surgical visit [] Trauma [] Long length of stay [x] ICU visit [] Other: Relational/Emotional Strength [] Patient feels connected with others/family/visitors/staff [] Distress [] Loneliness/isolation [] Abandonment Spirituality of Patient [] Person of Laura [] Attends Church of their Laura [] Believes in Prayer [] Reads Bible or Baptism materials [] There are Spiritual issues to be addressed Client Support Consultant Interventions [x] Prayer [] Active listening [] Non-anxious presence [] Spiritual/emotional support [] Crisis/trauma care [] Spiritual counseling [] Bereavement support [] Provided bereavement packet [] Provided Bible/devotional materials [] Provided toy/stuffed animal, coloring book to patient or family member [] Provided Communion [] Anointing/[place] [] Salvation [x] Completed spiritual assessment [] Other: Impact on Illness or Injury [] Angry [] Fearful [] Anxious [] Often cries [] Exhaustion [] Unable to work [] Unable to attend yarsani [] Unable to walk/stand [] Unable to read [] Unable to drive [] Unable to eat/drink [] Unable to sleep [] Unable to be with family [] Patient intubated [] Other: Summary Time spent with patient
[2021-08-26 10:46] LABS: Vancomycin Trough 10.5 ug/mL (10-15)
[2021-08-26] MEDS: vancomycin 750 MG in sodium chloride 0.9% 250 ML 250 MG IV ×2 (11:54→22:04)
[2021-08-26] MEDS: dextrose 5%-ns + KCl 20 20 MEQ/1,000 ML BAG 100 MEQ IV (11:55)
[2021-08-26] MEDS: cefepime 2,000 MG in sodium chloride 0.9% (plus) 50 ML 100 MG IV (15:28)
--- NOTE | 2021-08-26 15:36 | PC.SOCIAL ---
IMM update IMM updated with patient. Verbalized an understanding. Copy Pg 2 provided. Initialled, dated, timed, and placed in chart.
--- NOTE | 2021-08-26 16:04 | PM.PN ---
Subjective Subjective: Drop in hemoglobin noted Afebrile Doing well on room air She is tolerating her diet No BM yet We will transfer out of ICU Culture sensitivity reviewed gram-negative rian, E. 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 She had a syncopal event in 2013 which was secondary to excessive alcohol abuse Hemodynamically stable I might put a Holter monitor at the time of discharge No more hypotensive episodes Vitals/I&O/Wt Last Vital Signs Temp 97.3 F L 08/26/21 05:30 Pulse 57 L 08/26/21 08:00 Resp 18 08/26/21 08:00 BP 119/77 08/26/21 08:00 Pulse Ox 95 08/26/21 07:30 08/26/21 08/26/21 08/26/21 06:59 14:59 22:59 Intake Total 1377.127 / 5888.668 240 / 240 Output Total 620 / 1730 Balance 757.127 / 4158.668 240 / 240 Weight last 48 hrs Weight 80.739 kg Weight 75.795 kg Physical Exam Narrative: Patient is eating breakfast at the time of my evaluation Bradycardia noted Hemodynamically stable Nonfocal neuro exam Abdomen is nontender Bowel sounds are present Nontender abdomen Awake and alert Nonfocal neuro exam Saturating well on room air Data : 08/26/21 03:41 08/26/21 03:41 Micro: Microbiology 08/24/21 12:03 Gram Stain - Final Abdomen Anaerobic Culture - Preliminary Abscess Culture - Preliminary Escherichia coli A&P Assessment and plan (1) Drug reaction: Status: Acute (2) Bradycardia: Status: Acute (3) Abdominal wall abscess: Status: Acute (4) Cellulitis: Status: Acute (5) Anemia: Status: Acute Plan Abdominal wall abscess status post drainage 08/24: 1500ml drained Postoperative anemia: No need of blood transfusion Serosanguineous discharge which is cloudy Culture showing E. coli Considering severe leukocytosis, I would not de-escalate her IV antibiotics yet Plan to transfer out of ICU Blood pressure has improved Can be transition to p.o. 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
--- NOTE | 2021-08-26 18:39 | PC.NURSE ---
REPORT RECEIVED FROM DANIEL LARA FROM ICU. PT SAFELY TRANSFERRED TO HER ROOM ON MED-SURG. PT IS CURRENTLY RESTING IN HER BED. SHE IS NOT IN ANY PAIN. PT IS ALERT AND ORIENTATED. HEART RATE IS NSR. LUNGS SOUNDS ARE CLEAR. PT HAS A SURGICAL INCISION TO HER MEDIAL ABDOMEN. DRESSING IS C/D/I. FATOU IS LOCATED TO THE RLQ. CURRENTLY, THERE IS MINIMAL DRAINAGE FROM HER FATOU DRAIN. OTHER THAN THE SURGICAL INCISIONS PT HAS NO OTHER WOUNDS. WILL CONTINUE TO MONITOR.
--- NOTE | 2021-08-26 18:41 | PC.NURSE ---
Pt has total of 55 mls out of FATOU DRAIN. Pt emptied drain two times. Educated pt of importance of not touching drains and risks involved. Pt indicated understanding but emptied drain a second time. Reinforced education. Pt pleasant.
[2021-08-27] VITALS (8 sets, daily range): BP systolic 105–138; BP diastolic 64–78; PULSE 52–61; RESP 16–19; TEMP 36.4–36.8; O2SAT 96–100
[2021-08-27] MEDS: cefepime 2,000 MG in sodium chloride 0.9% (plus) 50 ML 100 MG IV ×2 (00:08→13:38)
[2021-08-27] MEDS: HYDROcodone-acetaminophen 5-325 mg Tablet PO ×4 (02:53→20:56)
[2021-08-27] MEDS: dextrose 5%-ns + KCl 20 20 MEQ/1,000 ML BAG 100 MEQ IV (02:54)
[2021-08-27 06:22] LABS: Basophils % 0.4 %; Eosinophils # 0.2 10^3/uL (0.0-0.8); Eosinophils % 1.8 %; Hematocrit 31.9 % (37.0-47.0); Hemoglobin 9.9 g/dL (11.5-15.3); Lymphocytes # 2.4 10^3/uL (0.8-4.8); Lymphocytes % 20.9 %; Mean Corpuscular Hemoglobin 32.7 pg (28.0-34.0); Mean Corpuscular Volume 105.3 fl (81-99); Mean Platelet Volume 9.7 fL (7.4-10.4); Monocytes # 0.6 10^3/uL (0.2-0.9); Monocytes % 5.5 %; Neutrophils # 8.01 10^3/uL (1.8-7.7); Neutrophils % 70.7 %; Nucleated Red Blood Cells % 0 %; Platelet Count 394 10^3/cmm (130-400); Red Blood Count 3.03 10^6/uL (4.1-5.3); Red Cell Distribution Width 13.2 % (12.1-15.1); White Blood Count 11.3 10^3/uL (4.0-10.0)
[2021-08-27 06:56] LABS: Anion Gap 13.2 (5-19); Blood Urea Nitrogen 13 mg/dL (8-23); Carbon Dioxide 23 mmol/L (22-29); Chloride 107 mmol/L (98-107); Glomerular Filtration Rate 101.3 mL/min (90-130); Glucose 127 mg/dL (65-115); Osmolality Calculated 288 mOsm/kg (285-295); Potassium 5.2 mmol/L (3.5-5.1); Sodium 138 mmol/L (136-145)
--- NOTE | 2021-08-27 08:43 | P.PN_ITS ---
Subjective Subjective: The patient has no complaints other than her IVs apparently keep going bad. She is eating solid food. She is emptying her own Heriberto drain. Vitals/I&O/Wt Last Vital Signs Temp 98.2 F 08/27/21 04:00 Pulse 61 08/27/21 06:00 Resp 19 H 08/27/21 04:00 BP 134/76 08/27/21 04:00 Pulse Ox 100 08/27/21 04:00 08/26/21 08/27/21 08/27/21 22:59 06:59 14:59 Intake Total 1540 / 2920 1140 / 2920 Output Total 700 / 1500 800 / 1500 375 / 375 Balance 840 / 1420 340 / 1420 -375 / -375 Weight last 48 hrs Weight 176 lb 12.8 oz Weight 178 lb Physical Exam Narrative: The patient is afebrile. The Heriberto drain has minimal serosanguineous fluid in the bulb. The surgical incision looks excellent. The dressing was left off. Data : 08/27/21 05:55 08/27/21 05:55 Micro: Microbiology 08/24/21 12:03 Gram Stain - Final Abdomen Anaerobic Culture - Preliminary Abscess Culture - Preliminary Escherichia coli A&P Assessment and plan (1) Abdominal wall abscess: Status post incision and drainage of very large abdominal wall abscess on August 24, 2021. The patient is growing E. coli from her abdominal wall abscess. The source of the abscess is not immediately clear. Continue IV antibiotics for now. Disposition per hospitalist team. I plan to leave the Heriberto drain in for probably 2 weeks. Status: Acute Attestations Medical Necessity Statement*: See admitting service's notation. Coding Level of Care Code Acute Client Relation Specialist for [facility] Diagnoses Abdominal wall abscess L02.211
[2021-08-27] MEDS: multivitamin therapeutic Tablet 1 TAB PO (10:30)
[2021-08-27] MEDS: thiamine 100 mg Tablet PO (10:30)
[2021-08-27] MEDS: pantoprazole DR 40 mg Tablet PO (10:30)
[2021-08-27] MEDS: folic acid 1 mg Tablet PO (10:30)
[2021-08-27] MEDS: dextrose 5%-ns + KCl 20 20 MEQ/1,000 ML BAG 50 MEQ IV (10:31)
[2021-08-27] MEDS: vancomycin 750 MG in sodium chloride 0.9% 250 ML 250 MG IV ×2 (10:34→23:20)
--- NOTE | 2021-08-27 14:11 | P.PN_ITS ---
Subjective Subjective: This morning patient was sitting in her bed He eating her breakfast She had multiple bowel movements during her hospitalization She is anxious about going home tomorrow stating that she lives indoors without electricity and rarely like to avoid multiple follow-ups, she prefers to stay until we see the final sensitivity on gram-positive cocci, I did convey culture and sensitivity report on gram-negative rods to her which has multiple p.o. options available for antibiotics Her drain will be removed by Dr. Quevedo in his clinic outpatient Vitals/I&O/Wt Last Vital Signs Temp 97.8 F 08/27/21 12:00 Pulse 58 L 08/27/21 12:00 Resp 16 08/27/21 12:00 BP 138/78 08/27/21 12:00 Pulse Ox 96 08/27/21 12:00 08/26/21 08/27/21 08/27/21 22:59 06:59 14:59 Intake Total 1540 / 1780 1140 / 2920 1781.667 / 1781.667 Output Total 700 / 700 800 / 1500 375 / 375 Balance 840 / 1080 340 / 1420 1406.667 / 1406.667 Weight last 48 hrs Weight 80.195 kg Weight 80.739 kg Physical Exam Narrative: Patient sitting in her bed Satting well on room air Bradycardia without hemodynamic instability Hemoglobin stable Serosanguineous discharge in the drain S1, S2 Abdomen soft No signs of peritonitis Awake and alert Nonfocal neuro exam Data : 08/27/21 05:55 08/27/21 05:55 Micro: Microbiology 08/24/21 12:03 Gram Stain - Final Abdomen Anaerobic Culture - Preliminary Abscess Culture - Final Escherichia coli A&P Assessment and plan (1) Anemia: Status: Acute (2) Drug reaction: Status: Acute (3) Bradycardia: Status: Acute (4) Abdominal wall abscess: Status: Acute (5) Cellulitis: Status: Acute Plan Abdominal wall abscess status post drainage E. coli sensitive to p.o. antibiotics Rare gram-positive cocci also seen in pairs, sensitivities pending Her leukocytosis trending down afebrile Tomorrow if she remains stable we will plan to de-escalate to Augmentin and doxycycline Will touch base with Dr. Quevedo Tolerating regular diet Regular bowel movements now Sinus bradycardia without hemodynamic instability, no electrolyte abnormality, TSH normal, will discharge her on event monitor Full code DVT prophylaxis held secondary to anemia noted Hemoglobin has been stable Attestations Medical Necessity Statement*: Continue hospitalization Time Spent in Patient Care: 20mins Coding Level of Care Code Acute Retail Management Trainee for [facility] Fwd Diagnoses Anemia D64.9 Drug reaction T50.905A Bradycardia R00.1 Abdominal wall abscess L02.211 Cellulitis L03.90
[2021-08-28] MEDS: cefepime 2,000 MG in sodium chloride 0.9% (plus) 50 ML 100 MG IV (01:28)
[2021-08-28] MEDS: HYDROcodone-acetaminophen 5-325 mg Tablet PO ×6 (02:10→23:14)
[2021-08-28 03:12] VITALS: BP 117/70; PULSE 54; RESP 18; TEMP 36.8; O2SAT 97
[2021-08-28 05:39] VITALS: PULSE 61
[2021-08-28 05:57] LABS: Basophils # 0.1 10^3/uL (0.0-0.1); Basophils % 0.8 %; Eosinophils # 0.2 10^3/uL (0.0-0.8); Eosinophils % 2.8 %; Hematocrit 32.2 % (37.0-47.0); Hemoglobin 9.8 g/dL (11.5-15.3); Lymphocytes # 1.8 10^3/uL (0.8-4.8); Lymphocytes % 25.1 %; Mean Corpuscular HGB Conc 30.4 g/dL (30.0-36.0); Mean Corpuscular Hemoglobin 32.1 pg (28.0-34.0); Mean Corpuscular Volume 105.6 fl (81-99); Mean Platelet Volume 9.6 fL (7.4-10.4); Monocytes # 0.4 10^3/uL (0.2-0.9); Monocytes % 5.9 %; Neutrophils # 4.67 10^3/uL (1.8-7.7); Neutrophils % 64.3 %; Nucleated Red Blood Cells % 0 %; Platelet Count 379 10^3/cmm (130-400); Red Blood Count 3.05 10^6/uL (4.1-5.3); Red Cell Distribution Width 13.2 % (12.1-15.1); White Blood Count 7.3 10^3/uL (4.0-10.0)
[2021-08-28 06:24] LABS: Anion Gap 11.3 (5-19); Blood Urea Nitrogen 10 mg/dL (8-23); Calcium 8.6 mg/dL (8.5-10.5); Carbon Dioxide 24 mmol/L (22-29); Chloride 108 mmol/L (98-107); Glomerular Filtration Rate 101.3 mL/min (90-130); Glucose 122 mg/dL (65-115); Osmolality Calculated 288 mOsm/kg (285-295); Potassium 4.3 mmol/L (3.5-5.1); Sodium 139 mmol/L (136-145)
--- NOTE | 2021-08-28 06:25 | PC.NURSE ---
SHIFT SUMMARY Has had a good night. Says still quite abit of incisional lower abd pain for which she has received po Hydrocodone X3 tonight. Incison to medial lower abd/pelvic area is C&D with dakota intact. Says is quite tender because is under her abd fold. Drain to RLQ with 25ml drainage this shift. Has been up to [facility] to urinate with good output noted. IV patent and infusing at 50ml/hr rate. Receiving IV antibiotics.
[2021-08-28 08:00] VITALS: BP 143/76; PULSE 89; RESP 13; O2SAT 98
[2021-08-28] MEDS: multivitamin therapeutic Tablet 1 TAB PO (08:46)
[2021-08-28] MEDS: pantoprazole DR 40 mg Tablet PO (08:46)
[2021-08-28] MEDS: thiamine 100 mg Tablet PO (08:46)
[2021-08-28] MEDS: folic acid 1 mg Tablet PO (08:46)
--- NOTE | 2021-08-28 09:19 | PM.PN ---
Subjective Subjective: The patient feels well. She is nervous about going home on new (oral) antibiotics given her possible reaction to Zosyn here in the hospital. She says her drain is putting out about 100 mL of serous fluid a day (she is emptying this herself). Vitals/I&O/Wt Last Vital Signs Temp 98.2 F 08/28/21 03:12 Pulse 61 08/28/21 05:39 Resp 18 08/28/21 03:12 BP 117/70 08/28/21 03:12 Pulse Ox 97 08/28/21 03:12 08/27/21 08/28/21 08/28/21 22:59 06:59 14:59 Intake Total 240 / 2741.667 360 / 2741.667 540 / 540 Output Total 1500 / 2700 825 / 2700 Balance -1260 / 41.667 -465 / 41.667 540 / 540 Weight last 48 hrs Weight 182 lb 8 oz Weight 176 lb 12.8 oz Physical Exam Narrative: Surgical sites look good. The Heriberto drain has some serous fluid in the bulb. Data : 08/28/21 05:37 08/28/21 05:37 Micro: Microbiology 08/24/21 12:03 Gram Stain - Final Abdomen Anaerobic Culture - Preliminary Anaerobic gram negative rods Abscess Culture - Final Escherichia coli A&P Assessment and plan (1) Abdominal wall abscess: Status post incision and drainage of very large abdominal wall abscess on August 24, 2021. The patient is growing E. coli and anaerobic gram-negative rods yet to be identified from her abdominal wall abscess. The source of the abscess was not immediately clear at the time of surgery. I am in favor of starting the patient on some oral antibiotics to make sure she is going tolerate those. I am going recommend that the drain stay in for probably at least another 10 days. She already seems the have a good handle on emptying this herself. Status: Acute Attestations Medical Necessity Statement*: See admitting service's notation. Coding Level of Care Code Acute Drill Press Operator Helper for [facility] Gal[facility]os Diagnoses Abdominal wall abscess L02.211
[2021-08-28] MEDS: LORazepam 2 mg Tablet PO (09:46)
--- NOTE | 2021-08-28 10:34 | PM.PN ---
Subjective Subjective: Leukocytosis has significantly improved Afebrile Plan to de-escalate diuretics to p.o. regimen we will give her dose of doxycycline and Augmentin in the hospital to see if she developed any reaction to these medications before we prescribe her at the time of discharge She can be discharged later today versus tomorrow We will discuss with rehabilitation case coordinator if we can assist her with her appointments and a ride Plan discussed with Dr. Quevedo Vitals/I&O/Wt Last Vital Signs Temp 98.2 F 08/28/21 03:12 Pulse 89 08/28/21 08:00 Resp 13 08/28/21 08:00 BP 143/76 08/28/21 08:00 Pulse Ox 98 08/28/21 08:00 08/27/21 08/28/21 08/28/21 22:59 06:59 14:59 Intake Total 240 / 2381.667 360 / 2741.667 540 / 540 Output Total 1500 / 1875 825 / 2700 Balance -1260 / 506.667 -465 / 41.667 540 / 540 Weight last 48 hrs Weight 82.781 kg Weight 80.195 kg Physical Exam Narrative: Patient is sitting comfortably in her bed Saturating well on room air No abdominal pain S1, S2 No audible stridor Serosanguineous light pink discharge in the drain EOMI, PERRLA Nonfocal neuro exam Data : 08/28/21 05:37 08/28/21 05:37 Micro: Microbiology 08/24/21 12:03 Gram Stain - Final Abdomen Anaerobic Culture - Preliminary Bacteroides thetaiotaomicron Abscess Culture - Final Escherichia coli A&P Assessment and plan (1) Anemia: Status: Acute (2) Drug reaction: Status: Acute (3) Bradycardia: Status: Acute (4) Abdominal wall abscess: Status: Acute (5) Cellulitis: Status: Acute Plan Abdominal wall abscess status post drainage De-escalate antibiotics to doxycycline and Augmentin, will give first dose today and watch for any signs of reaction Patient is tolerating her diet, No signs of bradycardia related symptoms TSH normal, Event monitor at discharge reservoir engineering manager updated We will prescribe her opioids, she will follow-up with Dr. Quevedo for drain removal Attestations Medical Necessity Statement*: Discharge later today versus tomorrow Time Spent in Patient Care: 30mins Coding Level of Care Code Acute Locomotive Engineer Electric for [facility] Fwd Diagnoses Anemia D64.9 Drug reaction T50.905A Bradycardia R00.1 Abdominal wall abscess L02.211 Cellulitis L03.90
[2021-08-28] MEDS: amoxicillin-clav 875-125 mg Tablet 1 TAB PO ×2 (10:46→17:57)
[2021-08-28] MEDS: doxycycline 100 mg Tablet PO ×2 (10:46→17:58)
[2021-08-28 12:00] VITALS: BP 130/83; PULSE 70; RESP 13; O2SAT 96
--- NOTE | 2021-08-28 13:17 | PC.SOCIAL ---
IMM Update pg 2 of IMM updated and reviewed w/ patient. Copy provided and Copy in chart updated.
[2021-08-28 16:00] VITALS: BP 123/63; PULSE 88; RESP 14; O2SAT 94
[2021-08-28 20:00] VITALS: BP 125/89; PULSE 81; RESP 17; TEMP 36.7; O2SAT 97
[2021-08-29] VITALS: BP 106/68; PULSE 54; RESP 16; TEMP 36.8; O2SAT 98
[2021-08-29] MEDS: HYDROcodone-acetaminophen 5-325 mg Tablet PO ×2 (03:11→10:15)
[2021-08-29 04:00] VITALS: BP 120/78; PULSE 60; RESP 17; TEMP 36.4; O2SAT 96
--- NOTE | 2021-08-29 05:09 | PC.NURSE ---
SHIFT SUMMARY Very pleasant and talkative. Says she is getting it arranged with a friend so she has someplace to go on discharge. Says she does not have electricity or running water at her house and thinks would not be a good idea to go home. Lower abdominal incision is C&D with dakota intact. Incision is up under abd fold and says this bothers her. FATOU Drain to RLQ with 70ml serosanguinous drainage this shift. Pt empties drain and compressed herself leaving drainage for nurse to measure. Is to go home with drain. Urinating large output per BSC. Has amulated this shift and was up in chair. Receiving po Hydrocodone for pain per pt request.
[2021-08-29 05:11] LABS: Basophils # 0.1 10^3/uL (0.0-0.1); Basophils % 0.7 %; Eosinophils # 0.2 10^3/uL (0.0-0.8); Hematocrit 28.8 % (37.0-47.0); Lymphocytes # 1.5 10^3/uL (0.8-4.8); Lymphocytes % 18.7 %; Mean Corpuscular HGB Conc 31.3 g/dL (30.0-36.0); Mean Corpuscular Hemoglobin 32.3 pg (28.0-34.0); Mean Corpuscular Volume 103.2 fl (81-99); Mean Platelet Volume 9.6 fL (7.4-10.4); Monocytes # 0.4 10^3/uL (0.2-0.9); Monocytes % 5.2 %; Neutrophils # 5.69 10^3/uL (1.8-7.7); Neutrophils % 71.2 %; Nucleated Red Blood Cells % 0 %; Platelet Count 339 10^3/cmm (130-400); Red Blood Count 2.79 10^6/uL (4.1-5.3); Red Cell Distribution Width 13.3 % (12.1-15.1)
[2021-08-29 08:00] VITALS: BP 112/64; BP 120/78; PULSE 60; PULSE 64; RESP 17; RESP 18; TEMP 36.4; O2SAT 98
[2021-08-29] MEDS: amoxicillin-clav 875-125 mg Tablet 1 TAB PO (09:03)
[2021-08-29] MEDS: pantoprazole DR 40 mg Tablet PO (09:03)
[2021-08-29] MEDS: doxycycline 100 mg Tablet PO (09:04)
[2021-08-29] MEDS: thiamine 100 mg Tablet PO (09:04)
[2021-08-29] MEDS: folic acid 1 mg Tablet PO (09:04)
[2021-08-29] MEDS: multivitamin therapeutic Tablet 1 TAB PO (09:04)
--- NOTE | 2021-08-29 10:10 | P.DS_ITS ---
Discharge Providers Date of Admission: 08/23/21 18:37 Date of Discharge: August 29, 2021 Attending Provider at Admission: Miroslava Ridley MD Attending Provider at Discharge: Geneva Elkins MD Diagnoses at Discharge Discharge Diagnosis (1) Anemia: Status: Acute (2) Drug reaction: Status: Acute (3) Bradycardia: Status: Acute (4) Abdominal wall abscess: Status: Acute (5) Cellulitis: Status: Acute Reason for Visit Reason for Visit: ABD PAIN X 1 MONTH Hospital Course Hospital Course Note has been written by Dr. Sae Pham Mitch is a 61 year old female who says she started having some left lower quadrant abdominal pain perhaps a month ago.? She noticed subsequently that she was getting some swelling in that region.? It continued the get larger and continued the cause more discomfort.? She never sought any medical attention for this until yesterday.? She said she has been drinking whiskey at home to control her discomfort.? She has not been running any fevers that she is aware of.? She says her bowel habits have been normal.? She says the area of the swelling has doubled in size over the past week and she finally had come into the emergency room yesterday because of the discomfort.? A CAT scan revealed a sizable probable infectious fluid collection in the abdominal wall. The patient denies any recent trauma to that area.? She does mention that she had a percutaneous pigtail catheter in place in [place] last October for what was thought to be a diverticular abscess.? She says this is the only issue she has ever had with diverticulitis.? She says the pigtail was in there for a month and a half and when the nurses went to remove it they had a lot of difficulty and had to pull on it quite hard.? After it was removed, however, she said she did well until just about a month ago when she started having problems in the same region Hospital course Patient went for Incisoin & drainage on 08/24, 1500 ml abscess was drained, A 19 Welsh fluted Heriberto drain was passed into the incision and out through a separate stab incision on the right side of the abdomen.? The drain was sewn in place at the skin with a suture of to 0 silk and the drain itself was coiled within the empty abscess cavity, initially patient received ceftriaxone however this was escalated to Zosyn, next day she received tramadol and experienced an allergic reaction, she was transferred to ICU for hypotension, required Levophed overnight which was weaned off after few hours. Vancomycin and cefepime were used afterwards. Patient remained afebrile, no worsening of leukocytosis. No bacteremia she remained bradycardic in the ICU however hemodynamically remained stable. Patient is stating that her heart rate does run low she recently has not experienced any syncopal event, shortness of breath or chest pain. She does get short of breath on exertion as [place] electricity and living a minimalistic life. Cultures yesterday report reviewed, it is showing E. coli and Bacteroides(anaerobic) for E. coli I have chosen Augmentin 10-day regimen and will Bacteroides would use Flagyl additional course however Augmentin will also cover Bacteroides. will give 20 tablets of oxycodone along bowel regimen. Follow-up with Dr. Quevedo after 10 days for the drain removal. 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 Physical Exam Narrative: Patient was sitting in her bed Sutures look intact No signs of infection Drain with pink discharge no signs of blood in the drain Abdomen is soft Eating well, EOMI, PERRLA Abdomen is soft no signs of tenderness or peritonitis Nonfocal neuro exam Saturating well on room air Discharge Data Studies Completed and Pending Completed Studies During Hospitalization Category Date Time Status CT abdomen pelvis w con* [id number] Stat Cat Scan 08/23/21 16:35 Completed CV. echo complete* [id number] Routine Ultrasound 08/25/21 11:13 Completed Pending at discharge Category Date Time Status Abscess Culture and Gram Stain Routine Lab 08/24/21 12:03 Results Anaerobic Culture Routine Lab 08/24/21 12:03 Results Radiology Impressions Abdomen/Pelvis CT 08/23/21 16:35 IMPRESSION: 1. Lower abdominal wall somewhat multiloculated cystic mass measuring 15 cm craniocaudal by 11 cm AP by 16 cm transverse confined to the subcutaneous fat without intra-abdominal extension along with a small amount of internal air, concerning for an infectious process. 2. Bilateral adrenal hypertrophy suspected. 3. Diverticulosis with some mid sigmoid colon wall thickening in the area of several diverticuli perhaps reflecting associated diverticulitis or short segment colitis in the appropriate clinical setting. Laboratory Results WBC 8.0 10^3/uL (4.0-10.0) 08/29/21 04:47 RBC 2.79 10^6/uL (4.1-5.3) L 08/29/21 04:47 Hgb 9.0 g/dL (11.5-15.3) L 08/29/21 04:47 Hct 28.8 % (37.0-47.0) L 08/29/21 04:47 MCV 103.2 fl (81-99) H 08/29/21 04:47 MCH 32.3 pg (28.0-34.0) 08/29/21 04:47 MCHC 31.3 g/dL (30.0-36.0) 08/29/21 04:47 RDW 13.3 % (12.1-15.1) 08/29/21 04:47 Plt Count 339 10^3/cmm (130-400) 08/29/21 04:47 MPV 9.6 fL (7.4-10.4) 08/29/21 04:47 Neut % (Auto) 71.2 % 08/29/21 04:47 Lymph % (Auto) 18.7 % 08/29/21 04:47 [place] % (Auto) 5.2 % 08/29/21 04:47 Eos % (Auto) 3.0 % 08/29/21 04:47 Baso % (Auto) 0.7 % 08/29/21 04:47 Neut # (Auto) 5.69 10^3/uL (1.8-7.7) 08/29/21 04:47 Lymph # (Auto) 1.5 10^3/uL (0.8-4.8) 08/29/21 04:47 [place] # (Auto) 0.4 10^3/uL (0.2-0.9) 08/29/21 04:47 Eos # (Auto) 0.2 10^3/uL (0.0-0.8) 08/29/21 04:47 Baso # (Auto) 0.1 10^3/uL (0.0-0.1) 08/29/21 04:47 Nucleated RBC % (auto) 0 % 08/29/21 04:47 Nucleated RBCs # 0.0 /100WBC 08/29/21 04:47 Sodium 139 mmol/L (136-145) 08/28/21 05:37 Potassium 4.3 mmol/L (3.5-5.1) 08/28/21 05:37 Chloride 108 mmol/L (98-107) H 08/28/21 05:37 Carbon Dioxide 24 mmol/L (22-29) 08/28/21 05:37 Anion Gap 11.3 (5-19) 08/28/21 05:37 BUN 10 mg/dL (8-23) 08/28/21 05:37 Creatinine 0.6 mg/dL (0.5-0.9) 08/28/21 05:37 GFR Calculation 101.3 mL/min (90-130) 08/28/21 05:37 Glucose 122 mg/dL (65-115) H 08/28/21 05:37 Calculated Osmolality 288 mOsm/kg (285-295) 08/28/21 05:37 Lactic Acid 3.1 mmol/L (0.5-2.2) H 08/23/21 18:19 Lactic Acid (Sepsis) 1.0 mmol/L (0.5-2.2) 08/23/21 20:52 Lactate 0.9 mmol/L (0.5-2.2) 08/25/21 01:31 Calcium 8.6 mg/dL (8.5-10.5) 08/28/21 05:37 Total Bilirubin 0.2 mg/dL (0.15-1.2) 08/26/21 03:41 AST 7 U/L (0-32) 08/26/21 03:41 ALT 10 U/L (0-33) 08/26/21 03:41 Alkaline Phosphatase 62 IU/L (35-105) 08/26/21 03:41 Troponin T Baseline 6 ng/L (0-10) 08/25/21 11:29 Troponin T 120 Minute 6.45 ng/L (0-10) 08/25/21 13:07 Delta Troponin T 0.45 ABS# (0-10) 08/25/21 13:07 Troponin T Hi Sens 6Hr 6.00 ng/L (0-10) 08/25/21 17:20 Troponin T Hi Sens 6Hr Delta 0 ng/L (0-12) 08/25/21 17:20 Total Protein 4.9 g/dL (6.6-8.7) L 08/26/21 03:41 Albumin 2.6 g/dL (3.5-5.2) L 08/26/21 03:41 Globulin 2.3 g/dL (1.3-4.6) 08/26/21 03:41 Procalcitonin 0.28 ng/mL (0-0.5) 08/24/21 04:35 TSH 0.55 uIU/mL (0.27-4.20) 08/25/21 11:29 Urine Color Yellow (Yellow) 08/23/21 17: Urine Appearance Clear (CLEAR) 08/23/21 17: Urine pH 7 (5-7) 08/23/21 17: Ur Specific [place] 1.005 (1.005-1.030) 08/23/21 17:27 Urine Protein Neg (Negative) 08/23/21 17: Urine Glucose (UA) Norm (Normal) 08/23/21 17: Urine Ketones Negative (Negative) 08/23/21 17: Urine Blood Neg (Negative) 08/23/21 17:27 Urine Nitrate Negative (Negative) 08/23/21 17:27 Urine Bilirubin Neg (Negative) 08/23/21 17:27 Urine Urobilinogen Norm mg/dL (Negative) 08/23/21 17:27 Ur Leukocyte Esterase Negative (Negative) 08/23/21 17:27 Ur Random Sodium 37 mmol/L 08/24/21 00:38 Ur Random Potassium 39 mmol/L 08/24/21 00:38 Ur Random Chloride 27 mmol/L 08/24/21 00:38 Vancomycin Trough 10.5 ug/mL (10-15) 08/26/21 10:10 Urine Opiates Screen Negative ng/mL (Negative) 08/23/21 17:27 Ur Barbiturates Screen Negative ng/mL (Negative) 08/23/21 17:27 Ur Phencyclidine Scrn Negative ng/mL (Negative) 08/23/21 17:27 Ur Amphetamines Screen Negative ng/mL (Negative) 08/23/21 17:27 U Benzodiazepines Scrn Negative ng/mL (Negative) 08/23/21 17:27 Urine Cocaine Screen Negative ng/mL (Negative) 08/23/21 17:27 U Marijuana (THC) Screen Positive ng/mL (Negative) H 08/23/21 17:27 Ethyl Alcohol < 10 mg/dL (0-10) 08/23/21 20:52 Vitals Last Vital Signs Temp 97.5 F L 08/29/21 08:00 Pulse 64 08/29/21 08:00 Resp 18 08/29/21 08:00 BP 112/64 08/29/21 08:00 Pulse Ox 98 08/29/21 08:00 Discharge Plan Discharge Patient Disposition: Home Condition: Stable Prescriptions: New acetaminophen 325 mg Tablet 650 mg PO Q6H PRN (Reason: Mild/Mod Pain Or Temp >/= 101) Qty: 60 0RF amoxicillin-pot clavulanate 875-125 mg Tablet 1 tab PO BID Qty: 20 0RF metronidazole 500 mg tablet 500 mg PO Q8H 10 Days Qty: 30 0RF Senna-S 8.6-50 mg tablet 1 tab-cap PO DAILY Qty: 10 0RF oxycodone 5 mg tablet 5 mg PO DAILY Qty: 20 0RF Continued multivitamin Tablet 1 tab PO DAILY 0RF aspirin 325 mg Tablet 325 mg PO .EVERY 3 DAYS 0RF Nitrostat 0.4 mg Tablet, Sublingual 0.4 mg SUBLINGUAL Q5M PRN (Reason: Chest Pain) 0RF Rx Instructions: do not exceed 3 doses per episode Bright Mag Zinc Plus D3 333 mg-133 unit -133 mg-5 mg Tablet 1 tab PO DAILY 0RF Vitamin D3 1 cap PO DAILY 0RF Discontinued albuterol sulfate [Ventolin HFA] 90 mcg/actuation Hfa Aerosol Inhaler 2 puff INHALATION QID PRN (Reason: Shortness Of Breath) 0RF Discharge Orders: Discharge Order (Routine); Ordered 08/29/21 Ordered By: Geneva Elkins Other Ambulatory Orders: MCT/Event Monitor 14 Days (Routine) Timeframe: 14 Day Facility: [facility] - [facility] Ordered By: Geneva Elkins Referrals: Nicanor Quevedo MD [Physician] - 09/06/21 10:00 am Stephanie Laurent MD [Physician] - (PATIENT NEEDS APPOINTMENT ALSO EVENT MONITOR) Discharge Diet: Cardiac Discharge Activity: Increase activity as tolerated Patient Instructions: Anemia, Cellulitis, Acetaminophen (By mouth), Oxycodone/Acetaminophen (By mouth), Metronidazole (By mouth), Amoxicillin (By mouth), Senna (By mouth), Abscess (ED), Opioid Safety Activity Restrictions/Additional Instructions: PLEASE CALL PATIENT WITH APPOINTMENT FOR EVENT MONITOR Discharge Attestations Time Spent in Discharge Care*: less than 30 min Quality Metrics Clinical Quality Measures [ No reported AMI, CVA or VTE this stay] Coding Level of Care Code Acute Chg FW DC note Diagnoses Anemia D64.9 Drug reaction T50.905A Bradycardia R00.1 Abdominal wall abscess L02.211 Cellulitis L03.90
[2021-08-29 11:10] VITALS: BP 110/65; PULSE 64; RESP 18; TEMP 36.4; O2SAT 96
--- NOTE | 2021-08-29 15:18 | PC.NURSE ---
Discharge orders gone over with patient along with follow up appointments
[2021-08-29 15:23] VITALS: BP 110/65; PULSE 64; RESP 18; TEMP 36.4; O2SAT 96
== END 2021-08-29 15:00 | disposition home or self-care (01) | DRG 603 ==
LOC: ER 19:21 → MEDSURG 19:57 → ICU 08-25 01:08 → MEDSURG 08-26 18:17
PROVIDERS: Family Medicine; Surgery; Admitting Provider Student in an Organized Health Care Education/Training Program; Emergency Provider Emergency Medicine; Visit Provider Internal Medicine
PROC: 0W9F30Z Drainage of Abdominal Wall with Drainage Device, Percutaneous Approach (ICD-10-PCS; principal; 2021-08-24 10:40)
DX: L02.211 Cutaneous abscess of abdominal wall (principal); L03.90 Cellulitis, unspecified; D64.9 Anemia, unspecified; T50.905A Adverse effect of unspecified drugs, medicaments and biological substances, initial encounter; R00.1 Bradycardia, unspecified; B96.6 Bacteroides fragilis [B. fragilis] as the cause of diseases classified elsewhere; B96.20 Unspecified Escherichia coli [E. coli] as the cause of diseases classified elsewhere; Z79.82 Long term (current) use of aspirin; K57.90 Diverticulosis of intestine, part unspecified, without perforation or abscess without bleeding; F17.210 Nicotine dependence, cigarettes, uncomplicated; F10.20 Alcohol dependence, uncomplicated; J44.9 Chronic obstructive pulmonary disease, unspecified; I10 Essential (primary) hypertension; Z86.73 Personal history of transient ischemic attack (TIA), and cerebral infarction without residual deficits; D72.829 Elevated white blood cell count, unspecified
CPT/HCPCS: 36415; 74177; 80048; 80053; 80202; 80306; 80307; 81003; 82436; 83605; 84133; 84145; 84300; 84443; 84484; 85025; 87040; 87070; 87075; 87077; 87186; 87205; 93005; 93306; 96365; 96367; 96375; 99285; J0692; J0696; J0744; J1100; J1200; J1885; J2250; J2270; J2405; J2543; J2704; J2920; J2930; J3010; J3370; J7030; J7050; P9041; Q9967; S0030

== ENCOUNTER 2021-12-04 21:00 | Emergency (ER) | payer MEDICARE, SELFPAY ==
[2021-12-04 21:07] VITALS: BP 122/78; PULSE 73; RESP 22; TEMP 36.6; O2SAT 96; BMI 26.1
--- NOTE | 2021-12-04 21:07 | XRR_ITS ---
PROCEDURE INFORMATION: Exam: XR Chest Exam date and time: 12/04/2021 9:29 PM Age: 61 years old Clinical indication: Pain; Left-sided; Additional info: Chest pain TECHNIQUE: Imaging protocol: XR of the chest. Views: 1 view. COMPARISON: CT abdomen pelvis w con* [id number] 08/23/2021 5:51 PM FINDINGS: Lungs: Unremarkable. No consolidation. Pleural spaces: Unremarkable. No pleural effusion. No pneumothorax. Heart/Mediastinum: Unremarkable. No cardiomegaly. Bones/joints: Unremarkable. XR/XR chest 1V portable [id number] IMPRESSION: No acute findings.
--- NOTE | 2021-12-04 21:07 | ECG_ITS ---
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 Measurements Intervals [place] Rate: 56 P: 16 VT: 137 QRS: 46 QRSD: 109 T: 46 QT: 440 QTc: 428 Interpretive Statements SINUS BRADYCARDIA WITH OCCASIONAL SUPRAVENTRICULAR PREMATURE COMPLEXES INCOMPLETE RIGHT BUNDLE BRANCH BLOCK [90+ ms QRS DURATION, TERMINAL R IN V1/V2, 40+ ms S IN I/aVL/V4/V5/V6] Compared to ECG 08/25/2021 17:39:17 Incomplete right bundle-branch block now present Electronically Signed On 12-05-2021 16:21:40 CDT by Tobi Skaggs M.D. [id number]
--- NOTE | 2021-12-04 21:09 | W.ED.CHESTPA ---
HPI - Chest Pain General: Chief Complaint: Chest Pain Stated Complaint: chest pain Time Seen by Provider: 12/04/21 21:06 History of Present Illness: Patient comes in today with complaints of fatigue and chest discomfort. Patient reports sleeping for about 11 hours which is abnormal for her. Patient does drink routinely at least 2 shots a day. Patient did admit to drinking prior to coming to the ER. Patient is alert and responding appropriately to questions. Patient reports a history of abdominal surgery for removal of mass from the stomach. Patient was given some nitro in route which relieved her chest discomfort. Patient reports that she has been without her Nitrostat at home. Associated symptoms: Deny dyspnea, fever(s) or vomiting Risk Factors: Coronary artery disease risk factors: smoking history Review of Systems General: Reports: 10 or more systems reviewed and unremarkable except in HPI and below Const: Denies: fever(s) Card: Reports: chest pain Resp: Denies: dyspnea GI: Denies: vomiting : Denies: difficulty voiding Skin/Breast: Denies: rash Neuro: Denies: headache(s) PFSH ED PFSH: Medical History (Updated 12/04/21 @ 22:26 by ELLE Bradley) Alcohol dependence Anemia Cellulitis Colitis COPD (chronic obstructive pulmonary disease) Diverticular disease of intestine with perforation and abscess Drug reaction Recurrent falls Surgical History (Updated 08/24/21 @ 08:01 by Nicanor Quevedo MD) H/O right wrist surgery Fracture repair History of hysterectomy One of the ovaries was removed History of tonsillectomy History of tubal ligation Social History (Updated 08/24/21 @ 08:02 by Nicanor Quevedo MD) Smoking and tobacco status: current every day smoker cigarettes Packs smoked per day: 0.5 Years cigarettes smoked: 50 [ Other cigarette details: Used to smoke more heavily in the past] Alcohol intake: current Alcohol type: hard liquor Physical Exam Const: COMMON NORMALS: alert HENMT: COMMON NORMALS: normocephalic HEAD & SCALP: normocephalic Neck/C-Spine: COMMON NORMALS: full ROM Chest: COMMONS NORMALS: normal inspection of the chest Resp: COMMON NORMALS: normal respiratory effort AUSCULTATION: wheezes Cardio: COMMON NORMALS: regular rate and regular rhythm RATE: regular rate RHYTHM: regular rhythm GI: COMMON NORMALS: Soft to palpation AUSCULTATION: Yes normoactive bowel sounds PALPATION: Yes Soft to palpation Extremity: COMMON NORMALS: normal to inspection Neuro: SENSORIUM/ORIENTATION: Yes alert Skin: COMMON NORMALS: no rashes or lesions noted GENERAL SKIN EXAM: no rashes or lesions noted Course Vital Signs: Vital signs: Vital Signs Temperature 97.9 F 12/04/21 21:07 Pulse Rate 73 12/04/21 21:07 Respiratory Rate 22 H 12/04/21 21:07 Blood Pressure 122/78 12/04/21 21:07 Pulse Oximetry 96 12/04/21 21:07 MDM - Chest Pain Medical Decision Making 61-year-old female comes in today with complaints of chest discomfort. Patient also reports fatigue and poor oral intake. On exam lungs are clear to auscultation. Heart rate was regular. Abdomen soft nontender. Vital signs were normal. Differential diagnosis includes ACS, alcohol intoxication, dehydration, anxiety. CBC noted some elevation in hemoglobin hematocrit this may be due to patient's chronic smoking or some mild dehydration. CMP noted elevation in the sodium at 147, creatinine 0.6. Patient was given 2 L of IV fluid for probable dehydration. Recommended patient decrease her alcohol intake and make sure to supplement with some oral electrolytes along with water. Patient lives in a off grid house without any electric or air conditioning. Patient states understanding agreed to plan. Lab Data : 12/04/21 21:25 12/04/21 21: Radiology Impressions Chest X-Ray 12/04/21 21: IMPRESSION: No acute findings. Laboratory Results WBC 7.4 10^3/uL (4.0-10.0) 12/04/21: RBC 5.02 10^6/uL (4.1-5.3) 12/04/21 21: Hgb 16.7 g/dL (11.5-15.3) H 12/04/21 21: Hct 49.4 % (37.0-47.0) H 12/04/21: MCV 98.4 fl (81-99) 12/04/21 21: MCH 33.3 pg (28.0-34.0) 12/04/21 21: MCHC 33.8 g/dL (30.0-36.0) 12/04/21 21: RDW 12.3 % (12.1-15.1) 12/04/21 21:25 Plt Count 299 10^3/cmm (130-400) 12/04/21 21:25 MPV 9.7 fL (7.4-10.4) 12/04/21 21:25 Neut % (Auto) 43.1 % 12/04/21: Lymph % (Auto) 46.7 % 12/04/21: [place] % (Auto) 4.2 % 12/04/21 21: Eos % (Auto) 4.7 % 12/04/21 21:25 Baso % (Auto) 1.2 % 12/04/21: Neut # (Auto) 3.18 10^3/uL (1.8-7.7) 12/04/21: Lymph # (Auto) 3.5 10^3/uL (0.8-4.8) 12/04/21: [place] # (Auto) 0.3 10^3/uL (0.2-0.9) 12/04/21: Eos # (Auto) 0.4 10^3/uL (0.0-0.8) 12/04/21: Baso # (Auto) 0.1 10^3/uL (0.0-0.1) 12/04/21: Nucleated RBC % (auto) 0 % 12/04/21 21: Nucleated RBCs # 0.0 /100WBC 12/04/21 21:25 Sodium 147 mmol/L (136-145) H 12/04/21 21:25 Potassium 4.0 mmol/L (3.5-5.1) 12/04/21 21: Chloride 107 mmol/L (98-107) 12/04/21 21: Carbon Dioxide 24 mmol/L (22-29) 12/04/21 21:25 Anion Gap 20.0 (5-19) H 12/04/21 21:25 BUN 6 mg/dL (8-23) L 12/04/21 21:25 Creatinine 0.6 mg/dL (0.5-0.9) 12/04/21 21:25 GFR Calculation 101.3 mL/min (90-130) 12/04/21 21:25 Glucose 87 mg/dL (65-115) 06/05/22 21:25 Calculated Osmolality 301 mOsm/kg (285-295) H 12/04/21 21:25 Calcium 9.3 mg/dL (8.5-10.5) 12/04/21 21:25 Magnesium 2.1 mg/dL (1.7-2.3) 12/04/21 21:25 Total Bilirubin 0.2 mg/dL (0.15-1.2) 12/04/21 21:25 AST 16 U/L (0-32) 12/04/21 21:25 ALT 9 U/L (0-33) 12/04/21 21:25 Alkaline Phosphatase 103 IU/L (35-105) 12/04/21 21:25 Troponin T Baseline 7 ng/L (0-10) 12/04/21 21:25 Total Protein 7.1 g/dL (6.6-8.7) 12/04/21 21:25 Albumin 4.1 g/dL (3.5-5.2) 12/04/21 21:25 Globulin 3.0 g/dL (1.3-4.6) 12/04/21 21:25 EKG Data EKG 1: EKG interpretation date: 12/04/21 EKG interpretation time: 21:29 Interpretation: EKG shows a sinus rhythm with no ST elevation or ectopy noted. I have a regular rhythm at 64 bpm. Prior exam was not available for comparison at this time. Discharge Plan Discharge Patient Disposition: Home Clinical Impression: Acute dehydration, Stable angina Condition: Stable Prescriptions: Continued Nitrostat 0.4 mg Tablet, Sublingual 0.4 mg SUBLINGUAL Q5M PRN (Reason: Chest Pain) Qty: 25 0RF Rx Instructions: do not exceed 3 doses per episode No Action multivitamin Tablet 1 tab PO DAILY 0RF aspirin 325 mg Tablet 325 mg PO .EVERY 3 DAYS 0RF Bright Mag Zinc Plus D3 333 mg-133 unit -133 mg-5 mg Tablet 1 tab PO DAILY 0RF Vitamin D3 1 cap PO DAILY 0RF acetaminophen 325 mg Tablet 650 mg PO Q6H PRN (Reason: Mild/Mod Pain Or Temp >/= 101) Qty: 60 0RF amoxicillin-pot clavulanate 875-125 mg Tablet 1 tab PO BID Qty: 20 0RF Senna-S 8.6-50 mg tablet 1 tab-cap PO DAILY Qty: 10 0RF oxycodone 5 mg tablet 5 mg PO DAILY Qty: 20 0RF Discharge Orders: Discharge ED (Routine); Ordered 12/04/21 Ordered By: Stephane Yang Discharge Diet: Usual diet Discharge Activity: Increase activity as tolerated Patient Instructions: Dehydration (ED) Activity Restrictions/Additional Instructions: Home and rest. Make sure to drink plenty of water and fluids especially in the heat when sweating. If you are sweating profusely try to supplement with electrolyte solution at least 8 ounces every 8 hours. Limit alcohol ingestion to 2 drinks a day. Follow-up with primary care for further instruction. Return to ER for new concerns or worsening symptoms. Coding Level of Care Code ED Orthodontic Treatment Coordinator for Maged Fwradha Exam Comprehensive
[2021-12-04] MEDS: sodium chloride 0.9% 1,000 ML 999 ML IV ×2 (21:34→22:55)
[2021-12-04 21:36] LABS: Basophils # 0.1 10^3/uL (0.0-0.1); Basophils % 1.2 %; Eosinophils # 0.4 10^3/uL (0.0-0.8); Eosinophils % 4.7 %; Hematocrit 49.4 % (37.0-47.0); Hemoglobin 16.7 g/dL (11.5-15.3); Lymphocytes # 3.5 10^3/uL (0.8-4.8); Lymphocytes % 46.7 %; Mean Corpuscular HGB Conc 33.8 g/dL (30.0-36.0); Mean Corpuscular Hemoglobin 33.3 pg (28.0-34.0); Mean Corpuscular Volume 98.4 fl (81-99); Mean Platelet Volume 9.7 fL (7.4-10.4); Monocytes # 0.3 10^3/uL (0.2-0.9); Monocytes % 4.2 %; Neutrophils # 3.18 10^3/uL (1.8-7.7); Neutrophils % 43.1 %; Nucleated Red Blood Cells % 0 %; Platelet Count 299 10^3/cmm (130-400); Red Blood Count 5.02 10^6/uL (4.1-5.3); Red Cell Distribution Width 12.3 % (12.1-15.1); White Blood Count 7.4 10^3/uL (4.0-10.0)
[2021-12-04 22:00] LABS: Alanine Aminotransferase 9 U/L (0-33); Albumin Level 4.1 g/dL (3.5-5.2); Alkaline Phosphatase 103 IU/L (35-105); Aspartate Amino Transferase 16 U/L (0-32); Blood Urea Nitrogen 6 mg/dL (8-23); Calcium 9.3 mg/dL (8.5-10.5); Carbon Dioxide 24 mmol/L (22-29); Chloride 107 mmol/L (98-107); Glomerular Filtration Rate 101.3 mL/min (90-130); Glucose 87 mg/dL (65-115); Magnesium 2.1 mg/dL (1.7-2.3); Osmolality Calculated 301 mOsm/kg (285-295); Sodium 147 mmol/L (136-145); Total Bilirubin 0.2 mg/dL (0.15-1.2); Total Protein 7.1 g/dL (6.6-8.7)
[2021-12-04 22:02] LABS: Troponin(5th) Baseline 7 ng/L (0-10)
--- NOTE | 2021-12-04 23:07 | ECG_ITS ---
[facility] Test Date: 2021-12-04 Pat Name: Vero Meyer Department: Room: Gender: Female Rn Hematology: : 1960 Requested By: Stephane Merida Order Number: [id number] Erica MD: Tobi Skaggs M.D. Measurements Intervals [place] Rate: 64 P: 26 VT: 143 QRS: 30 QRSD: 100 T: 42 QT: 414 QTc: 428 Interpretive Statements SINUS RHYTHM POSSIBLE RIGHT VENTRICULAR CONDUCTION DELAY [RSR (QR) IN V1/V2] Compared to ECG 08/25/2021 17:39:17 Sinus bradycardia no longer present Electronically Signed On 12-05-2021 16:29:21 CDT by Tobi Skaggs M.D. [id number]
[2021-12-05 00:15] VITALS: BP 119/71; PULSE 77; RESP 16; TEMP 36.7; O2SAT 94
== END 2021-12-05 00:17 | disposition home or self-care (01) ==
PROVIDERS: Emergency Provider Nurse Practitioner Family
DX: I20.8 Other forms of angina pectoris (principal); E86.0 Dehydration; J44.9 Chronic obstructive pulmonary disease, unspecified; F17.210 Nicotine dependence, cigarettes, uncomplicated; Z79.82 Long term (current) use of aspirin
CPT/HCPCS: 71045; 80053; 83735; 84484; 85025; 93005; 96374; 99284; J3411; J7030

== ENCOUNTER 2022-04-30 23:34 | Emergency (ER) | payer MEDICARE, SELFPAY ==
[2022-04-30 23:40] VITALS: BP 165/111; PULSE 108; RESP 18; TEMP 36.2; O2SAT 94
--- NOTE | 2022-05-01 00:11 | CTR_ITS ---
PROCEDURE INFORMATION: Exam: CT Head Without Contrast Exam date and time: 05/01/2022 12:38 AM Age: 61 years old Clinical indication: Injury or trauma; Fall; Blunt trauma (contusions or hematomas) TECHNIQUE: Imaging protocol: Computed tomography of the head without contrast. Radiation optimization: All CT scans at this facility use at least one of these dose optimization techniques: automated exposure control; mA and/or kV adjustment per patient size (includes targeted exams where dose is matched to clinical indication); or iterative reconstruction. COMPARISON: CT head wo con* [id number] 07/10/2021 6:05 PM RADIATION DOSE METRICS: Total DLP (mGy-cm): 1034.08 FINDINGS: Brain: Mild diffuse white matter disease likely reflecting chronic microvascular ischemic changes. Cerebral ventricles: No ventriculomegaly. Paranasal sinuses: Visualized sinuses are unremarkable. No fluid levels. Mastoid air cells: Visualized mastoid air cells are well aerated. Bones/joints: Unremarkable. No acute fracture. Soft tissues: Left scalp laceration. CT/CT head wo con* [id number] IMPRESSION: Negative for intracranial hemorrhage or mass effect
[2022-05-01 02:00] VITALS: RESP 16; O2SAT 96
[2022-05-01] MEDS: oxyCODONE-APAP 5-325 mg Tablet 2 TAB PO (02:00)
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
== END 2022-05-01 02:53 | disposition home or self-care (01) ==
PROVIDERS: Emergency Provider Emergency Medicine; PCP Family Medicine
DX: S06.0X0A Concussion without loss of consciousness, initial encounter (principal); S01.01XA Laceration without foreign body of scalp, initial encounter; S00.03XA Contusion of scalp, initial encounter; Z79.82 Long term (current) use of aspirin; J44.9 Chronic obstructive pulmonary disease, unspecified; F17.210 Nicotine dependence, cigarettes, uncomplicated; W51.XXXA Accidental striking against or bumped into by another person, initial encounter
CPT/HCPCS: 12002; 70450; 99284